=== PATIENT | female | born 1970 | race Caucasian/White ===

== ENCOUNTER 2023-03-31 11:41 | Outpatient (REF) | payer OTHER, SELFPAY ==
[2023-03-31 13:49] LABS: Free T4 (Free Thyroxine) 1.15 ng/dL (0.71-1.85); Thyroid Stimulating Hormone 0.51 uIU/mL (0.32-4.0)
[2023-04-03 19:18] LABS: Thyroglobulin Antibodies <1 IU/mL (< or = 1); Thyroid Peroxidase Antibodies 1 IU/mL (<9)
== END 2023-03-31 11:42 | disposition home or self-care (01) ==
LOC: HO.LAB 11:41
PROVIDERS: PCP Internal Medicine; Visit Provider Internal Medicine
DX: E04.2 Nontoxic multinodular goiter (principal)
CPT/HCPCS: 36415; 84439; 84443; 86376; 86800

== ENCOUNTER 2023-07-12 10:55 | Outpatient (REF) | payer OTHER, SELFPAY ==
--- NOTE | ~2023-07-12 | US_ITS ---
EXAMINATION: US BIOPSY THYROID NODULE CLINICAL INFORMATION: Left thyroid nodule. COMPARISON: None available. TECHNIQUE: Following explaining left thyroid nodule ultrasound-guided biopsy procedure, benefits and risks, a written consent was obtained. Patient was placed supine with head extended on the ultrasound stretcher and preliminary ultrasound imaging was obtained through the left neck. An optimal site was selected for the skin puncture and marked on the skin. The marked site was cleaned and draped in the usual sterile manner. 1% lidocaine was injected at puncture site. Under sterile ultrasound guidance, the midpole thyroid nodule biopsy was performed with 25-gauge biopsy needle attached to syringe. The sample was handed to lab for further evaluation. Postprocedure, needle was removed and complete hemostasis achieved at puncture site. Sterile Band-Aid applied postprocedure. US/US biopsy thyroid FINDINGS/IMPRESSION: On preliminary ultrasound imaging, there is a moderate echogenic nodule left midpole with eccentric hypoechoic to anechoic area, likely cyst. The nodule measures 2.7 x 1.6 x 1.6 cm. A 3-pass fine-needle biopsy aspiration was performed under ultrasound guidance. IMPRESSION: Successful ultrasound-guided left thyroid midpole nodule biopsy performed.
[2023-07-12] MEDS: Lidocaine HCl 1 % MPF 5 ML VIAL SUBCUT (11:56)
== END 2023-07-12 10:56 | disposition home or self-care (01) ==
LOC: HO.US 10:55
PROVIDERS: PCP Internal Medicine; Visit Provider Internal Medicine
DX: E04.2 Nontoxic multinodular goiter (principal)
CPT/HCPCS: 10005; 88173; 88305

== ENCOUNTER → 2023-07-12 10:57 | Outpatient (BNV) | payer OTHER, SELFPAY | PROVIDERS: PCP Internal Medicine; Visit Provider Radiology Diagnostic Radiology | DX: E04.2 Nontoxic multinodular goiter (principal) | CPT/HCPCS: 10005 ==

== ENCOUNTER 2023-08-30 15:44 | Outpatient (AMB) | payer OTHER, SELFPAY ==
[2023-08-30 15:51] VITALS: BP 150/80; PULSE 79; BMI 30.6
--- NOTE | 2023-08-30 15:51 | A.OFFVIS_ITS ---
Intake Vital Signs 08/30/23 15:51 Height 5 ft 3.5 in Weight 175 lb 4.28 oz BMI 30.6 BP 150/80 H Blood Pressure Location Lt brachial Position Sitting Pulse 79 Pulse Source Pulse Oximeter Intake Visit Reasons: FNA Results/LVM Intake Note: Patient present today for FNA results. Previous patient of Dr. Mera. 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 Patient last saw Dr. Mera on 03/31/2023. She is status post FNA left thyroid not with benign cytology She was found to have hypothyroidism approximately 1.5 months ago and was started on levothyroxine 150 mcg PO daily. She is currently on 137 mcg levothyroxine She reports feeling anxious, fatigued and emotionally labile. She also reports a weight gain of 35 lbs. She underwent an US of the neck and was noted to have a 3.1 cm left lobe thyroid nodule. She denies any personal history of radiation therapy to the head or the neck. She denies any family history of thyroid cancer. No pertinent labs to review. [facility] Medical History Multinodular thyroid Surgical History History of surgery Hx of tonsillectomy Family History Mother Colon cancer Father Family history of prostate problems Sister Colon cancer Metastasis to lung Liver cancer Social History Alcohol intake: current Alcohol intake frequency: holidays/special occasions only Patient Tobacco Use Status: Never used Tobacco Physical Exam Const Other: Thyroid gland is normal size weighs about 15 g. There are no thyroid nodules palpated Assessment & Plan Assessment & Plan (1) Multinodular thyroid: Code(s): E04.2 - Nontoxic multinodular goiter Plan: This is a 52-year-old white female with a history of left thyroid nodule and hypothyroidism status post FNA of left nodule with benign cytology. She appears to be clinically biochemically euthyroid on 137 mcg levothyroxine. Plan is to check TSH and free T4. Nodule would be reserved with observation and serial ultrasounds. Will consider switching from generic levothyroxine to branded Tirosint with dose depending on lab work Orders: Orders Thyroid Stimulating Hormone Today E04.2 - Nontoxic multinodular goiter Free T4 (Free Thyroxine) Today E04.2 - Nontoxic multinodular goiter Coding Level of Care Code Est Pt Level 3 (34473) Diagnoses Multinodular thyroid E04.2
== END 2023-08-30 16:28 | disposition home or self-care (01) ==
PROVIDERS: PCP Internal Medicine; Visit Provider Internal Medicine Endocrinology, Diabetes & Metabolism
DX: E04.2 Nontoxic multinodular goiter (principal)
CPT/HCPCS: 99213

== ENCOUNTER 2023-08-30 15:44 | Outpatient (REF) | payer OTHER, SELFPAY ==
[2023-08-30 18:32] LABS: Free T4 (Free Thyroxine) 1.34 ng/dL (0.71-1.85); Thyroid Stimulating Hormone 3.73 uIU/mL (0.32-4.0)
== END 2023-08-30 15:45 | disposition home or self-care (01) ==
LOC: HO.LAB 15:44
PROVIDERS: Absent Provider Internal Medicine; PCP Internal Medicine; Visit Provider Internal Medicine Endocrinology, Diabetes & Metabolism
DX: E04.2 Nontoxic multinodular goiter (principal); E03.8 Other specified hypothyroidism; Z98.890 Other specified postprocedural states
CPT/HCPCS: 36415; 84439; 84443

== ENCOUNTER 2024-11-18 13:50 | Outpatient (AMB) | payer OTHER, SELFPAY ==
--- NOTE | 2024-11-14 11:41 | A.OFFPC_ITS ---
Vital Signs 11/18/24 13:52 Height 5 ft 5 in Weight 175 lb BMI 29.1 BP 122/78 Blood Pressure Location Rt brachial Position Sitting Pulse 81 Temp 97.2 F Pulse Oximetry (%) 96 Intake Visit Reasons: FMLA Allergies codeine Allergy (Unknown, Verified 11/18/24 14:54) rash when she was younger gabapentin Allergy (Unknown, Verified 11/18/24 14:54) Rash Penicillins Allergy (Unknown, Verified 11/18/24 14:54) Rash Sulfa (Sulfonamide Antibiotics) Adverse Reaction (Unknown, Verified 11/18/24 14:54) yeast infection Medication List - Last Reconciled 11/18/24 by Guillermo Manning MD albuterol sulfate 90 mcg/actuation 2 puffs inhalation Q6H PRN cholecalciferol (vitamin D3) 25 mcg PO DAILY ferrous sulfate 325 mg PO .TWICE EACH WEEK fluticasone propion-salmeterol 100-50 mcg/dose (Advair Diskus) 1 inh inhalation Q12H levalbuterol tartrate 45 mcg/actuation 1 puff inhalation Q6H levothyroxine (Synthroid) 150 mcg orally ONCE DAILY WITH FOOD; SYNTHROID - NO SUBSTITUTIONS DAW1 morphine ER 60 mg PO Q12H oxycodone 5 mg PO Q8H PRN piroxicam 50 mg PO DAILY piroxicam 20 mg orally Once daily with food; sertraline 100 mg PO DAILY tramadol 50 mg PO TID PRN Ventolin HFA 90 mcg/actuation (albuterol sulfate) 1 puff inhalation QID PRN NS HPI FMLA HPI Details 53-year-old female presents to the offic e to discuss her chronic medical conditions. I am assuming her care. 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 She has this condition for many years and is on opiates for the past 8 years. Patient takes morphine extra release 60 mg twice a day, oxycodone 5 mg twice a day and tramadol 50 mg twice a day. She has been on this regimen for many months. Prior to her previous providers fpc, he had reduce the dosage to the above regimen. 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 She is able to go up and down the stairs and do the heavy work which is part of her job description. Patient is also requesting that her FMLA forms be renewed. Patient also has a thyroid disorder for which she takes levothyroxine. She t akes 150 mcg of levothyroxine every day. Patient reports severe gastric discomfort with levothyroxine. Unfortunately her insurance will not cover the brand prescription. [facility] Medical History DJD (degenerative joint disease), ankle and foot Chronic pain syndrome Multinodular thyroid Surgical History Hx of tonsillectomy History of surgery Family History Mother Colon cancer Father Family history of prostate problems Sister Colon cancer Metastasis to lung Liver cancer Social History Alcohol intake: current Alcohol intake frequency: holidays/special occasions only Patient Tobacco Use Status: Never used Tobacco Physical exam (Primary Care) Vital Signs: Last Vital Signs Temp 97.2 F 11/18/24 13:52 Pulse 81 11/18/24 13:52 BP 122/78 11/18/24 13:52 Pulse Ox 96 11/18/24 13:52 BMI result Body Mass Index 29.1 Tobacco/Smoking Status: Tobacco use Status Patient Tobacco Use Status Never used Tobacco 11/14/24 11:41 Const Other: Patient walking with a limp. General: cooperative and healthy appearing Nutritional Appearance: well nourished Orientation/consciousness: patient oriented x3 Limitations: no limitations HENMT Head: Yes normal to inspection Eyes General: appearance normal, both eyes and all related structures Neck Neck: Yes normal visual inspection Chest Chest palpation & inspection: normal palpation of entire chest wall Resp Effort & Inspection: normal respiratory effort Neuro General: patient oriented x3 Coding Level of Care Code New Pt Level 4 (68878) Complex EM visit Add On G2211 Diagnoses DJD (degenerative joint disease), ankle and foot M19.079 Chronic pain syndrome G89.4 Assessment & Plan Assessment & Plan (1) DJD (degenerative joint disease), ankle and foot: Code(s): M19.079 - Primary osteoarthritis, unspecified ankle and foot Category: Medical Plan: X-ray of the ankle ordered. X-ray of the hip ordered. This has to evaluate the progression on the DJD. (2) Chronic pain syndrome: Code(s): G89.4 - Chronic pain syndrome Category: Medical Plan: Patient is able to function and do all activities of daily living under current opiate regimen. I have suggested that she sees the pain management once to determine if the regimen is appropriate. I will be continuing the prescriptions for her after she has seen pain management. FMLA forms will be filled. Orders: Orders XR hip RT w PEL1V 11/18/24 M25.551 - Pain in right hip Complete Blood Count no Diff 11/18/24 G89.4 - Chronic pain syndrome, M19.079 - Primary osteoarthritis, unspecified ankle and foot Lipid Panel 11/18/24 G89.4 - Chronic pain syndrome, M19.079 - Primary osteoarthritis, unspecified ankle and foot Liver Panel 11/18/24 G89.4 - Chronic pain syndrome, M19.079 - Primary os teoarthritis, unspecified ankle and foot XR ankle LT min 3V 11/18/24 M19.079 - Primary osteoarthritis, unspecified ankle and foot Thyroid Stimulating Hormone 11/18/24 G89.4 - Chronic pain syndrome, M19.079 - Primary osteoarthritis, unspecified ankle and foot Basic Metabolic Panel 11/18/24 G89.4 - Chronic pain syndrome, M19.079 - Primary osteoarthritis, unspecified ankle and foot UA and rflx microscopic 11/18/24 G89.4 - Chronic pain syndrome, M19.079 - Primary osteoarthritis, unspecified ankle and foot Referrals Pain Management Referral G89.4 - Chronic pain syndrome Medications: New fluticasone propion-salmeterol 100-50 mcg/dose (Advair Diskus) 1 inh inhalation Q12H 60 ea 0RF levalbuterol tartrate 45 mcg/actuation 1 puff inhalation Q6H 15 grams 0RF cholecalciferol (vitamin D3) 25 mcg PO DAILY 90 caps 0RF Ventolin HFA 90 mcg/actuation (albuterol sulfate) BRAND NAME ONLY - DAW1 1 puff inhalation QID PRN 18 grams 0RF shortness of breath or wheezing NS Refilled oxycodone 5 mg PO Q8H PRN 90 tabs 0RF pain tramadol 50 mg PO TID PRN 90 tabs 0RF pain morphine ER 60 mg PO Q12H 60 tabs 0RF
[2024-11-18 13:52] VITALS: BP 122/78; PULSE 81; TEMP 36.2; O2SAT 96; BMI 29.1
== END 2024-11-18 14:32 | disposition home or self-care (01) ==
LOC: HO.HMCSH 13:50
PROVIDERS: PCP Internal Medicine; Visit Provider Internal Medicine
DX: M19.079 Primary osteoarthritis, unspecified ankle and foot (principal); G89.4 Chronic pain syndrome

== ENCOUNTER 2025-06-09 08:33 | Outpatient (AMB) | payer OTHER, SELFPAY ==
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
[2025-06-09 08:43] VITALS: BP 150/82; PULSE 72; RESP 16; TEMP 36.2; O2SAT 99; BMI 28.5
--- OUTSIDE RECORDS SUMMARY | 2025-06-09 08:57 | XMS_ITS | Encounter Summary ---
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 Name Role Phone Shawn Stanton DO Primary Care Provider [phone] Encounter Details Date Type Department Care Team (Latest Contact Info) Description 04/24/2018 Transcribe Orders [facility] [address] [place] [address] [place] [address] Shawn Stanton DO [address] [place] [address] Iron deficiency anemia due to chronic blood loss (Primary Dx) Social History Tobacco Use Types Packs/Day Years Used Date Smoking Tobacco: Never Assessed Comments Unknown Sex and Gender Information Value Date Recorded Sex Assigned at Not on file Legal Sex Female 9:34 PM EDT Gender Identity Not on file Sexual Orientation Not on file documented as of this encounter Plan of Treatment Not on file documented as of this encounter Results * (ABNORMAL) Comprehensive metabolic panel (04/24/2018 1:14 PM EDT) SODIUM 136 133 - 146 mmol/L [facility] POTASSIUM 3.9 3.3 - 5.1 mmol/L [facility] CHLORIDE 97 96 - 108 mmol/L [facility] CO2 27 21 - 35 mmol/L [facility] BUN 12 6 - 19 mg/dL [facility] CREATININE 0.50 0.5 - 1.5 mg/dL [facility] GLUCOSE 109(H) 70 - 99 mg/dL [facility] ALBUMIN 4.2 3.9 - 4.8 g/dL [facility] TOTAL PROTEIN 7.3 6.5 - 8.0 g/dL [facility] CALCIUM 9.5 8.4 - 10.3 mg/dL [facility] ALKALINE PHOSPHATASE 118(H) 39 - 117 U/L [facility] TOTAL BILIRUBIN 0.3 0.0 - 1.2 mg/dL [facility] AST 27 0 - 37 U/L [facility] ALT 27 0 - 40 U/L [facility] GLOBULIN 3.1 1 - 4.8 g/dL [facility] EGFR 115 >59 mL/min/1.7 3m2 [facility] Comment:If patient is black, multiply result by 1.159. Estimated glomerular filtration rate calculated using the CKD-EPI equation. ANION GAP 16 10 - 20 mmol/L [facility] Blood 04/24/2018 1:14 PM EDT 04/24/2018 1:18 PM EDT us Shawn Stanton DO LAB BLOOD ORDERABLES Final R esult Performing Organization Address City/[facility]/ZIP Co de Phone Number [address] [address] * Iron and iron binding capacity (04/24/2018 1:14 PM EDT) IRON 120 30 - 160 ug/dL [facility] IRON BINDING CAPACITY 339 228 - 428 ug/dL [facility] TRANSFERRIN SATURAT. 35 15 - 50 % [facility] Blood 04/24/2018 1:14 PM EDT 04/24/2018 1:18 PM EDT us Shawn Stanton DO LAB BLOOD ORDERABLES Final R esult [address] [address] * Ferritin (04/24/2018 1:14 PM EDT) FERRITIN 25 13 - 150 ug/L [facility] Blood 04/24/2018 1:14 PM EDT 04/24/2018 1:18 PM EDT us Shawn Stanton DO LAB BLOOD ORDERABLES Final R esult [address] [place] [address] * (ABNORMAL) CBC and differential (04/24/2018 1:14 PM EDT) WBC 5.11 3.40 - 11.20 K/uL [facility] RBC 3.91 3.80 - 4.80 M/uL [facility] HGB 11.7(L) 12.0 - 15.0 g/dL [facility] HCT 35.0(L) 36.0 - 46.0 % [facility] PLT 199 130 - 400 K/uL [facility] MCV 89.5 79.0 - 98.0 fL [facility] MCH 29.9 27.0 - 34.8 pg [facility] MCHC 33.4 31.5 - 36.0 g/dL [facility] RDW 13.7 10.8 - 14.6 % [facility] MPV 10.7 9.4 - 12.4 fl [facility] NRBC 0.00 /100 WBCs [facility] ABSOLUTE NRBC 0.00 K/uL [facility] DIFF METHOD Auto [facility] NEUTS 68.0 45.30 - 77.70 % [facility] LYMPHS 23.5 12.30 - 39.70 % [facility] MONOS 6.5 4.10 - 12.80 % [facility] EOS 1.2 0 - 7.2 % [facility] BASOS 0.6 0 - 2.80 % [facility] Granulocytes, immature (%) 0.2 0.0 - 0.9 % [facility] ABSOLUTE NEUTS 3.48 1.40 - 7.70 K/uL [facility] ABSOLUTE LYMPHS 1.20 0.60 - 3.20 K/uL [facility] ABSOLUTE MONOS 0.33 0.11 - 0.59 K/uL [facility] ABSOLUTE EOS 0.06 0.01 - 0.50 K/uL [facility] ABSOLUTE BASOS 0.03 0.00 - 0.08 K/uL [facility] Granulocytes, immature 0.01 0.00 - 0.05 K/uL [facility] Blood 04/24/2018 1:14 PM EDT 04/24/2018 1:18 PM EDT us Shawn Stanton DO LAB BLOOD ORDERABLES Final R esult [facility] [address] [place] [address] documented in this encounter Visit Diagnoses Diagnosis Iron deficiency anemia due to chronic blood loss- Primary Iron deficiency anemia secondary to blood loss (chronic) documented in this encounter Care Teams Automobile Upholsterer Relationship Specialty Start Date End Date Shawn Stanton, [address] [place] [phone] PCP - General 10/19/17 documented as of this encounter Additional Source Comments The information contained in this document represents components of the legal health record. It is not the complete legal health record.[facility]
== END 2025-06-09 09:59 | disposition home or self-care (01) ==
LOC: HO.HMCSH 08:33
PROVIDERS: PCP Internal Medicine; Visit Provider Internal Medicine
DX: G89.4 Chronic pain syndrome (principal)

== ENCOUNTER 2025-08-28 15:00 | Outpatient (REF) | payer OTHER, SELFPAY ==
--- OUTSIDE RECORDS SUMMARY | 2025-08-28 18:15 | XMS_ITS | Encounter Summary ---
Author Organization [facility] Address [address] [place] [address] Phone Care Team Providers Care Automatic Log Cut Off Sawyer Name Role Phone Shawn Stanton Primary Care Provider Encounter Details Date Type Department Care Team (Late st Contact Info) Description 08/22/2025 Orders Only [address] [place] [address] Guillermo Manning MD [address] [place] [address] [address] [place], [place] [id number] Localized, primary osteoarthritis of ankle or foot, unspecified laterality (Primary Dx); Chronic pain syndrome Social History Tobacco Use Types Packs/Day Years Used Date Smoking Tobacco: Never Alcohol Use Standard Drinks/Week Comments Yes 0 (1 standard drink = 0.6 oz pur e alcohol) Education Answer Date Recorded Are you interested in more education? Not on shantelle e 02/10/2023 Are you concerned about learning? Not on file 02/10/2023 No 02/10/2023 No 02/10/2023 Digital Access Answer Date Recorded No 03/11/2023 No 03/11/2023 Reliable internet access at home? Not on file 03/11/2023 Device with a working camera? Not on file Comments Unknown Sex and Gender Information Value Date Recorded Sex Assigned at Not on file Legal Sex Female 9:34 PM EDT Gender Identity Not on file Sexual Orientation Not on file documented as of this encounter Plan of Treatment Scheduled Orders Name Type Priority Associated Diagnoses Orde r Schedule Basic Metabolic Panel (BMP) Lab Routine Localized, primary osteoarthritis of ankle or foot, unspecified laterality Chronic pain syndrome Expected: 08/22/2025, Expires: 08/22/2026 Urinalysis with Reflex to Urine Culture Lab Routine Localized, primary osteoarthritis of ankle or foot, unspecified laterality Chronic pain syndrome Expected: 08/22/2025, Expires: 08/22/2026 CBC Lab Routine Localized, primary osteoarthritis of ankle or foot, unspecified laterality Chronic pain syndrome Expected: 08/22/2025, Expires: 08/22/2026 Lipid Panel Lab Routine Localized, primary osteoarthritis of ankle or foot, unspecified laterality Chronic pain syndrome Expected: 08/22/2025, Expires: 08/22/2026 Hepatic Panel (LFTs) Lab Routine Localized, primary osteoarthritis of ankle or foot, unspecified laterality Chronic pain syndrome Expected: 08/22/2025, Expires: 08/22/2026 Thyroid Stimulating Hormone (TSH) Lab Routine Localized, primary osteoarthritis of ankle or foot, unspecified laterality Chronic pain syndrome Expected: 08/22/2025, Expires: 08/22/2026 documented as of this encounter Visit Diagnoses Diagnosis Localized, primary osteoarthritis of ankle or foot, unspecified laterality- Primary Chronic pain syndrome documented in this encounter Care Teams Automatic Log Cut Off Sawyer Relationship Specialty Start Date End Date Shawn Stanton DO [address] [place] [id number] PCP - General 10/19/17 documented as of this encounter Additional Source Comments The information contained in this document represents components of the legal health record. It is not the complete legal health record.[facility]
--- OUTSIDE RECORDS SUMMARY | 2025-08-28 18:15 | XMS_ITS | Encounter Summary ---
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); Mild persistent asthma without complication; Iron deficiency anemia secondary to blood loss (chronic) Social History Tobacco Use Types Packs/Day Years [...] encounter Results * (ABNORMAL) Comprehensive metabolic panel (09/30/2019 8:17 AM EST) SODIUM 135 133 - 146 mmol/L [facility] POTASSIUM 4.2 3.3 - 5.1 mmol/L [facility] CHLORIDE 98 96 - 108 mmol/L [facility] CO2 26 21 - 35 mmol/L [facility] BUN 13 6 - 19 mg/dL [facility] CREATININE <0.50(L) 0.5 - 1.5 mg/dL [facility] GLUCOSE 97 70 - 99 mg/dL [facility] ALBUMIN 4.1 3.9 - 4.8 g/dL [facility] TOTAL PROTEIN 7.2 6.5 - 8.0 g/dL [facility] CALCIUM 8.8 8.4 - 10.3 mg/dL [facility] ALKALINE PHOSPHATASE 107 39 - 117 U/L [facility] TOTAL BILIRUBIN 0.2 0.0 - 1.2 mg/dL [facility] AST 29 0 - 37 U/L [facility] ALT 25 0 - 40 U/L [facility] GLOBULIN 3.1 1 - 4.8 g/dL [facility] EGFR Not Done >59 mL/min/1.7 3m2 [facility] ANION GAP 15 10 - 20 mmol/L [facility] Blood 09/30/2019 8:17 AM EST 09/30/2019 8:21 AM EST us Shawn Stanton DO LAB BLOOD BKR ORDERABLES Fin al Result Performing Organization Address City/State/[facility] Co de Phone Number [address] [address] * (ABNORMAL) CBC and differential (09/30/2019 8:17 AM EST) WBC 4.09 3.40 - 11.20 K/uL [facility] RBC 3.74(L) 3.80 - 4.80 M/uL [facility] HGB 9.4(L) 12.0 - 15.0 g/dL [facility] HCT 31.3(L) 36.0 - 46.0 % [facility] PLT 260 130 - 400 K/uL [facility] MCV 83.7 79.0 - 98.0 fL [facility] MCH 25.1(L) 27.0 - 34.8 pg [facility] MCHC 30.0(L) 31.5 - 36.0 g/dL [facility] RDW 15.2(H) 10.8 - 14.6 % [facility] MPV 10.0 9.4 - 12.4 fl [facility] NRBC 0.00 0.00 /100 WBCs [facility] ABSOLUTE NRBC 0.00 0.00 K/uL [facility] DIFF METHOD Auto [facility] NEUTS 52.0 45.30 - 77.70 % [facility] LYMPHS 32.8 12.30 - 39.70 % [facility] MONOS 12.0 4.10 - 12.80 % [facility] EOS 2.0 0 - 7.2 % [facility] BASOS 1.0 0 - 2.80 % [facility] Granulocytes, immature (%) 0.2 0.0 - 0.9 % [facility] ABSOLUTE NEUTS 2.13 1.40 - 7.70 K/uL [facility] ABSOLUTE LYMPHS 1.34 0.60 - 3.20 K/uL [facility] ABSOLUTE MONOS 0.49 0.11 - 0.59 K/uL [facility] ABSOLUTE EOS 0.08 0.01 - 0.50 K/uL [facility] ABSOLUTE BASOS 0.04 0.00 - 0.08 K/uL [facility] Granulocytes, immature 0.01 0.00 - 0.05 K/uL [facility] Blood 09/30/2019 8:17 AM EST 09/30/2019 8:21 AM EST [facility] ORDERABLES Fin al Result Performing Organization Address [facility] Co de Phone Number [address] [address] * (ABNORMAL) Ferritin (09/30/2019 8:17 AM EST) FERRITIN 9(L) 13 - 150 ug/L [facility] Blood 09/30/2019 8:17 AM EST 09/30/2019 8:21 AM EST Shawn Romy DO LAB BLOOD BKR ORDERABLES Fin al Result Performing Organization Address [facility] Co de Phone Number [address] [address] * (ABNORMAL) Lipid panel (09/30/2019 8:17 AM EST) HDL 94 mg/dL [facility] Comment: Interpretation <40 mg/dL: Low HDL cholesterol (major risk factor for CHD) Greater than or equal to 60 mg/dL: High HDL cholesterol ( negative risk factor for CHD) HDL - cholesterol is affected by a number of factors, e.g. smoking, excerise, hormones, sex and age. CHOLESTEROL 209 0 - 240 mg/dL [facility] TRIGLYCERIDES 71 30 - 160 mg/dL [facility] LDL 101 50 - 129 mg/dL [facility] Comment: LDL levels in terms of risk for coronary heart disease: <100 mg/dL: Optimal 100-129 mg/dL: Near or above optimal 130-159 mg/dL: Borderline high 160-189 mg/dL: High >190 mg/dL: Very High CARDIAC RISK RATIO 2.2(L) 3.3 - 4.4 C [facility] Blood 09/30/2019 8:17 AM EST 09/30/2019 8:21 AM EST Shawn Stanton DO LAB BLOOD BKR ORDERABLES Fin al Result Performing Organization Address [facility] Co de Phone Number [address] [address] * (ABNORMAL) Iron and iron binding capacity (09/30/2019 8:17 AM EST) IRON 20(L) 30 - 160 ug/dL [facility] IRON BINDING CAPACITY 417 228 - 428 ug/dL [facility] TRANSFERRIN SATURAT. 5(L) 15 - 50 % [facility] Blood 09/30/2019 8:17 AM EST 09/30/2019 8:21 AM EST Shawn Stanton DO LAB BLOOD BKR ORDERABLES Fin al Result Performing Organization Address City/[facility]/ZIP Co de Phone Number [address] [address] * (ABNORMAL) 25-OH vitamin D (09/30/2019 8:17 AM EST) 25 OH VIT D (TOTAL) 24(L) 30 - 60 ng/mL [facility] Blood 09/30/2019 8:17 AM EST 09/30/2019 8:21 AM EST Shawn Stanton LAB BLOOD BKR ORDERABLES Fin al Result Performing Organization Address City/[facility]/ZIP Co de Phone Number [address] [address] * TSH (09/30/2019 8:17 AM EST) TSH 3.26 0.27 - 4.20 uIU/mL [facility] Blood 09/30/2019 8:17 AM EST 09/30/2019 8:21 AM EST Shawn Stanton LAB BLOOD BKR ORDERABLES Fin al Result Performing Organization Address [facility] de Phone Number [address] [address] * LH (09/30/2019 8:17 AM EST) LH 1.6 IU/L [facility] Comment: Interpretation: FEMALE: Follicular: 2.4 - 12.6 mIU/ml Ovulate: 4.0 - 99.6 mIU/ml Luteal: 1.0 - 11.4 mIU/ml Postmenopausal: 7.7 - 58.5 mIU/ml Blood 09/30/2019 8:17 AM EST 09/30/2019 8:21 AM EST Shawn Stanton LAB BLOOD BKR ORDERABLES Fin al Result Performing Organization Address [facility] Co de Phone Number [address] [address] * FSH (09/30/2019 8:17 AM EST) FSH 3.9 IU/L [facility] Comment: FEMALE: Follicular: 3.5 - 12.5 mIU/ml. Ovulate: 4.7 - 21.5 mIU/ml. Luteal: 1.7 - 7.7 mIU/ml. Postmenopausal: 25.8 - 134.8 mIU/ml. Blood 09/30/2019 8:17 AM EST 09/30/2019 8:21 AM EST Shawn Stanton DO LAB BLOOD BKR ORDERABLES Fin al Result Performing Organization Address City/[facility]/ZIP Co de Phone Number [address] [address] * ESTROGENS, E1+E2, FRACTIONATED (09/30/2019 8:17 AM EST) ESTRONE 49 pg/mL [facility] Comment: (NOTE) REFERENCE VALUE Premenopausal :17-200 Postmenopausal : 7-40 ADDITIONAL INFORMATION This test was developed and its performance characteristics determined by [facility] in a manner consistent with CLIA requirements. This test has not been cleared or approved by the U.S. Food and Drug Administration. ESTRADIOL, S 40 pg/mL [facility] Comment: (NOTE) REFERENCE VALUE Premenopausal: 15-350 (E2 levels vary widely through the menstrual cycle.) Postmenopausal: <10 ADDITIONAL INFORMATION This test was developed and its performance characteristics determined by [facility] in a manner consistent with CLIA requirements. This test has not been cleared or approved by the U.S. Food and Drug Administration. Blood 09/30/2019 8:17 AM EST 09/30/2019 8:21 AM EST Shawn Stanton DO LAB BLOOD ORDERABLES Final R esult Performing Organization Address [facility]/ZIP Co de Phone Number [facility] [address] [place] [address] documented in this encounter Visit Diagnoses Diagnosis Chronic pain due to trauma- Primary Mild persistent asthma without complication Iron deficiency anemia secondary to blood loss (chronic) documented in this encounter Care Teams Drapery Installer Relationship Specialty Start Date End Date Shawn Stanton DO [address] [place] [id number] PCP - General 10/19/17 documented as of this encounter Additional Source Comments The information contained in this document represents components of the legal health record. It is not the complete legal health record.[facility]
--- OUTSIDE RECORDS SUMMARY | 2025-08-28 18:15 | XMS_ITS | Encounter Summary ---
Author Organization [facility] Address [address] [facility] [address] [place] [address] Phone Care Team Providers Care Campus Rep Name Role Phone Shawn Stanton DO Primary Care Provider Encounter Details Date Type Department Care Team (Latest Contact Info) Description 04/24/2018 Transcribe Orders [facility] Phle[facility] [address] [place] [address] Shawn Stanton DO [address] [place] [address] Iron deficiency anemia due to chronic blood [...] EDT) SODIUM 136 133 - 146 mmol/L [facility] POTASSIUM 3.9 3.3 - 5.1 mmol/L [facility] CHLORIDE 97 96 - 108 mmol/L [facility] CO2 27 21 - 35 mmol/L [facility] BUN 12 6 - 19 mg/dL [facility] CREATININE 0.50 0.5 - 1.5 mg/dL [facility] GLUCOSE 109(H) 70 - 99 mg/dL [facility] ALBUMIN 4.2 3.9 - 4.8 g/dL [facility] TOTAL PROTEIN 7.3 6.5 - 8.0 g/dL [facility] CALCIUM 9.5 8.4 - 10.3 mg/dL [facility] ALKALINE PHOSPHATASE 118(H) 39 - 117 U/L [facility] TOTAL BILIRUBIN 0.3 0.0 - 1.2 mg/dL [facility] AST 27 0 - 37 U/L [facility] ALT 27 0 - 40 U/L [facility] GLOBULIN 3.1 1 - 4.8 g/dL [facility] EGFR 115 >59 mL/min/1.7 3m2 [facility] Comment:If patient is black, multiply result by 1.159. Estimated glomerular filtration rate calculated using the CKD-EPI equation. ANION GAP 16 10 - 20 mmol/L [facility] Blood 04/24/2018 1:14 PM EDT 04/24/2018 1:18 PM EDT us Shawn Stanton DO LAB BLOOD BKR ORDERABLES Fin al Result Performing Organization Address [facility] Co de Phone Number [address] [address] * Iron and iron binding capacity (04/24/2018 1:14 PM EDT) IRON 120 30 - 160 ug/dL [facility] IRON BINDING CAPACITY 339 228 - 428 ug/dL [facility] TRANSFERRIN SATURAT. 35 15 - 50 % [facility] Blood 04/24/2018 1:14 PM EDT 04/24/2018 1:18 PM EDT Shawn Stanton DO LAB BLOOD BKR ORDERABLES Fin al Result [address] [address] * Ferritin (04/24/2018 1:14 PM EDT) FERRITIN 25 13 - 150 ug/L [facility] Blood 04/24/2018 1:14 PM EDT 04/24/2018 1:18 PM EDT us Shawn Stanton DO LAB BLOOD BKR ORDERABLES Fin al Result [facility] [address] [place] [address] * (ABNORMAL) CBC and differential (04/24/2018 1:14 PM EDT) WBC 5.11 3.40 - 11.20 K/uL [facility] RBC 3.91 3.80 - 4.80 M/uL [facility] HGB 11.7(L) 12.0 - 15.0 g/dL [facility] HCT 35.0(L) 36.0 - 46.0 % [facility] PLT 199 130 - 400 K/uL [facility] MCV 89.5 79.0 - 98.0 fL [facility] MCH 29.9 27.0 - 34.8 pg [facility] MCHC 33.4 31.5 - 36.0 g/dL [facility] RDW 13.7 10.8 - 14.6 % [facility] MPV 10.7 9.4 - 12.4 fl [facility] NRBC 0.00 /100 WBCs [facility] ABSOLUTE NRBC 0.00 K/uL [facility] DIFF METHOD Auto [facility] NEUTS 68.0 45.30 - 77.70 % [facility] LYMPHS 23.5 12.30 - 39.70 % [facility] MONOS 6.5 4.10 - 12.80 % [facility] EOS 1.2 0 - 7.2 % [facility] BASOS 0.6 0 - 2.80 % [facility] Granulocytes, immature (%) 0.2 0.0 - 0.9 % [facility] ABSOLUTE NEUTS 3.48 1.40 - 7.70 K/uL [facility] ABSOLUTE LYMPHS 1.20 0.60 - 3.20 K/uL [facility] ABSOLUTE MONOS 0.33 0.11 - 0.59 K/uL [facility] ABSOLUTE EOS 0.06 0.01 - 0.50 K/uL [facility] ABSOLUTE BASOS 0.03 0.00 - 0.08 K/uL [facility] Granulocytes, immature 0.01 0.00 - 0.05 K/uL [facility] Blood 04/24/2018 1:14 PM EDT 04/24/2018 1:18 PM EDT us Shawn Stanton DO LAB BLOOD BKR ORDERABLES Fin al Result [facility] [address] [place] [address] documented in this encounter Visit Diagnoses Diagnosis Iron deficiency anemia due to chronic blood loss- Primary Iron deficiency anemia secondary to blood loss (chronic) documented in this encounter Care Teams Campus Rep Relationship Specialty Start Date End Date Shawn Stanton, [address] [place] [address] PCP - General 10/19/17 documented as of this encounter Additional Source Comments The information contained in this document represents components of the legal health record. It is not the complete legal health record.[facility]
--- OUTSIDE RECORDS SUMMARY | 2025-08-28 18:15 | XMS_ITS | Encounter Summary ---
Author Organization [facility] Address [address] [address] Phone Care Team Providers Care Prosthodontist/Educator Name Role Phone Shawn Stanton DO Primary Care Provider Encounter Details Date Type Department Care Team (Latest Contact Info) Description 12/20/2021 Transcribe Orders Virtual Department [address] [place] [address] Shawn Stanton DO [address] [place] [address] COVID (Primary Dx); Mild persistent asthma without complication Social History Tobacco Use Types Packs/Day Years Used Date Smoking Tobacco: Never Alcohol Use Standard Drinks/Week Comments Yes 0 (1 standard drink = 0.6 oz pur e alcohol) Comments Unknown Sex and Gender Information Value Date Recorded Sex Assigned at Not on file Legal Sex Female 9:34 PM EDT Gender Identity Not on file Sexual Orientation Not on file documented as of this encounter Plan of Treatment Not on file documented as of this encounter Visit Diagnoses Diagnosis COVID- Primary Mild persistent asthma without complication documented in this encounter Care Teams Prosthodontist/Educator Relationship Specialty Start Date End Date Shawn Stanton DO [address] [place] [address] PCP - General 10/19/17 documented as of this encounter Additional Source Comments The information contained in this document represents components of the legal health record. It is not the complete legal health record.[facility]
--- OUTSIDE RECORDS SUMMARY | 2025-08-28 18:15 | XMS_ITS | Encounter Summary ---
Author Organization [facility] Address [address] [place] [address] Phone Care Team Providers Care Photographer Motion Picture Name Role Phone Shawn Stanton DO Primary Care Provider Encounter Details Date Type Department Care Team (Late st Contact Info) Description 08/22/2025 Orders Only [facility] [address] [place] [address] Guillermo Manning MD [address] [place] [address] [address] [place], [place] [phone] Chronic pain syndrome (Primary Dx); Localized, primary osteoarthritis of ankle or foot, unspecified laterality Social History Tobacco Use Types Packs/Day Years [...] documented as of this encounter Results * Urinalysis with Reflex to Urine Culture (08/22/2025 8:26 AM EST) Color Yellow Yellow 08/22/2025 3:37 PM EST [facility] Clarity Clear Clear 08/22/2025 3:37 PM [facility] Glucose Negative Negative 08/22/2025 3:37 PM [facility] Bilirubin Urine Negative Negative 3:37 PM [facility] Ketone Urine Negative Negative 08/22/2025 3:37 PM [facility] Specific [place] 1.020 1.001 - 1.035 08/22/2025 3:37 PM [facility] Blood Negative Negative 08/22/2025 3:37 PM [facility] pH 6.5 5.0 - 8.0 08/22/2025 3:37 PM [facility] Protein Negative Negative 08/22/2025 3:37 PM [facility] Nitrites Negative Negative 08/22/2025 3:37 PM [facility] Leukocyte Esterase Negative Negative 08/22/2025 3:37 PM [facility] Urobilinogen Negative Negative 08/22/2025 3:37 PM [facility] Urine (Urine, Voided) Non-Blood Collection / Unknown 08/22/2025 8:26 AM EST 08/22/2025 8:26 AM EST us Guillermo Manning MD LAB URINE ORDERABLES Final Result Performing Organization Address City/[facility]/ZIP Co de Phone Number [address] [address] * Thyroid Stimulating Hormone (TSH) (08/22/2025 8:26 AM EST) TSH 1.02 0.40 - 5.00 uIU/mL 08/22/2025 2:51 PM [facility] Blood (Blood) Venipuncture / Unknown 08/22/2025 8:26 AM EST 08/22/2025 8:26 AM EST us Guillermo Manning MD LAB BLOOD BKR ORDERA BLES Final Result [address] [address] * (ABNORMAL) Hepatic Panel (LFTs) (08/22/2025 8:26 AM EST) AST 32 <33 U/L 08/22/2025 2:51 PM [facility] ALT 25 <34 U/L 08/22/2025 2:51 PM [facility] Alkaline Phosphatase 164(H) 40 - 130 U/L 08/22/2025 2:51 PM [facility] Bilirubin, Total 0.4 0.0 - 1.2 mg/dL 08/22/2025 2:51 PM [facility] Bilirubin, Direct 0.1 0.0 - 0.3 mg/dL 08/22/2025 2:51 PM [facility] Total Protein 8.2 6.4 - 8.3 g/dL 08/22/2025 2:51 PM [facility] Albumin 4.7 3.5 - 5.2 g/dL 08/22/2025 2:51 PM [facility] Globulin 3.5 1.9 - 4.1 g/dL 08/22/2025 2:51 PM [facility] Blood (Blood) Venipuncture / Unknown 08/22/2025 8:26 AM EST 08/22/2025 8:26 AM EST us Guillermo Manning MD LAB BLOOD BKR ORDERA BLES Final Result Performing Organization Address City/State/[facility] Co de Phone Number [address] [address] * (ABNORMAL) Lipid Panel (08/22/2025 8:26 AM EST) Cholesterol 235(H) <200 mg/dL 08/22/2025 2:51 PM [facility] HDL 110 >=40 mg/dL 08/22/2025 2:51 PM [facility] Calculated LDL 110 <130 mg/dL 08/22/2025 2:51 PM [facility] Comment:LDL is calculated us ing the Pradhan-NIH equation (TIFFANY Cardiol. 2019February 13;5(5):540-548). Non-HDL Cholesterol 125 mg/dL 08/22/2025 2:51 PM [facility] Comment:Guidelines suggest a non-HDL cholesterol goal 30 mg/dL higher than the patient-specific LDL cholesterol goal. Cardiac Risk Ratio 2.1 0.0 - 5.0 2024 2:51 PM [facility] Triglycerides 89 <=150 mg/dL 08/22/2025 2:51 PM [facility] Blood (Blood) Venipuncture / Unknown 08/22/2025 8:26 AM EST 08/22/2025 8:26 AM EST us Guillermo Manning MD LAB BLOOD BKR ORDERA BLES Final Result Performing Organization Address City/State/[facility] Co de Phone Number [facility] [address] [place] [address] * (ABNORMAL) CBC (08/22/2025 8:26 AM EST) WBC 6.89 4.00 - 11.00 K/uL 08/22/2025 1:44 PM [facility] RBC 4.40 4.00 - 5.20 M/uL 08/22/2025 1:44 PM [facility] Hemoglobin 14.9 12.0 - 16.0 g/dL 08/22/2025 1:44 PM [facility] Hematocrit 43.9 36.0 - 46.0 % 08/22/2025 1:44 PM [facility] MCV 99.8 80.0 - 100.0 fL 08/22/2025 1:44 PM [facility] MCH 33.9(H) 27.0 - 31.0 pg 08/22/2025 1:44 PM [facility] MCHC 33.9 32.0 - 36.0 g/dL 08/22/2025 1:44 PM [facility] PLT 200 150 - 450 K/uL 08/22/2025 1:44 PM [facility] MPV 11.0 8.4 - 12.0 fL 08/22/2025 1:44 PM [facility] RDW-CV 11.7 11.5 - 14.5 % 08/22/2025 1:44 PM [facility] Absolute NRBC 0.00 <=0.00 K cells/uL 08/22/2025 1:44 PM [facility] NRBC 0.0 <=0.0 /100 WBCs 08/22/2025 1:44 PM [facility] Blood (Blood) Venipuncture / Unknown 08/22/2025 8:26 AM EST 08/22/2025 8:26 AM EST us Guillermo Manning MD LAB BLOOD BKR ORDERA BLES Final Result [address] [address] * (ABNORMAL) Basic Metabolic Panel (BMP) (08/22/2025 8:26 AM EST) Sodium 135(L) 136 - 145 mmol/L 08/22/2025 2:51 PM [facility] Potassium 4.3 3.4 - 5.1 mmol/L 08/22/2025 2:51 PM [facility] Comment:NOTE: Specimen hemol yzed. Results may be falsely increased. Chloride 97(L) 98 - 107 mmol/L 08/22/2025 2:51 PM [facility] CO2 26 20 - 31 mmol/L 08/22/2025 2:51 PM [facility] Anion Gap 12 3 - 17 mmol/L 08/22/2025 2:51 PM [facility] BUN 11 6 - 23 mg/dL 08/22/2025 2:51 PM [facility] Creatinine 0.40(L) 0.50 - 1.00 mg/dL 08/22/2025 2:51 PM [facility] eGFR 118 >59 mL/min/1.7 3m2 08/22/2025 2:51 PM [facility] Comment:Estimated glomerular filtration rate calculated using the CKD-EPI refit equation. Glucose 96 70 - 99 mg/dL 08/22/2025 2:51 PM [facility] Calcium 10.2 8.5 - 10.5 mg/dL 08/22/2025 2:51 PM EST [facility] Blood (Blood) Venipuncture / Unknown 08/22/2025 8:26 AM EST 08/22/2025 8:26 AM EST us Guillermo Manning MD LAB BLOOD BKR ORDERA BLES Final Result Performing Organization Address City/State/[facility] Co de Phone Number [facility] [address] [place] [address] documented in this encounter Visit Diagnoses Diagnosis Chronic pain syndrome- Primary Localized, primary osteoarthritis of ankle or foot, unspecified laterality documented in this encounter Care Teams Photographer Motion Picture Relationship Specialty Start Date End Date Shawn Stanton DO [address] [place] [id number] PCP - General 10/19/17 documented as of this encounter Additional Source Comments The information contained in this document represents components of the legal health record. It is not the complete legal health record.[facility]
--- OUTSIDE RECORDS SUMMARY | 2025-08-28 18:15 | XMS_ITS | Clinical Summary ---
Author Organization [facility] Address [address] [address] Phone Care Team Providers Care Deputy Sheriff/Investigator Name Role Phone Shawn Stanton DO Primary Care Provider [phone] Allergies Active Allergy Reactions Criticality Noted Date Comments Codeine 05/07/2021 Gabapentin 05/07/2021 Penicillins 05/07/2021 Sulfa (Sulfonamide Antibiotics) 04/16 Medications traMADol (ULTRAM) 50 mg tablet Take 1 tablet by mouth every 6 (six) hours as needed. Active albuterol (PROVENTIL HFA) 90 mcg/actuation inhaler Inhale 2 puffs into the lungs every 4 (four) hours as needed. Active morphine (MS CONTIN) 60 MG 12 hr tablet Orally Active Medication-Free Text Hydrocodone-Titus taminophen 10-325 MG/15ML tablet, Si tablet as needed Orally every 6 hrs Active fluticasone-asher meterol (ADVAIR DISKUS) 100-50 mcg/dose DISKUS Inhalation Act alberto ferrous sulfate 325 mg (65 mg iron) CpER Orally Active Encounters Date Type Department Care Team Description 08/22/2025 Orders Only [facility] [place] [place] [address] [place] [address] [place] [address] Guillermo Manning MD Chronic pain syndrome (Primary Dx); Localized, primary osteoarthritis of ankle or foot, unspecified laterality 08/22/2025 Orders Only [facility] Phle[facility] [place] [address] [place] [address] [place] [address] Guillermo Manning MD Localized, primary osteoarthritis of ankle or foot, unspecified laterality (Primary Dx); Chronic pain syndrome from Last 3 Months Family History Medical History Relation Comments Colon cancer Sister Relation Status Comments Sister Social History Tobacco Use Types Packs/Day Years [...] on file Sexual Orientation Not on file Last Filed Vital Signs Vital Sign Reading Time Taken Comments Blood Pressure 128/80 01/16/2017 4:17 AM EDT Pulse - - Temperature - - Respiratory Rate - - Oxygen Saturation - - Inhaled Oxygen Concentration - - Weight 74.1 kg (163 lb 6.4 oz) 01/16/2017 4:17 A M EDT Height 160 cm (5' 3 ) 01/16/2017 4:17 AM EDT Body Mass Index 28.95 01/16/2017 4:17 AM EDT Plan of Treatment Health Maintenance Due Date Last Done Comments Adult Td,Tdap Booster 1970 DEPRESSION SCREENING 1982 HEPATITIS C SCREENING 1988 HIV ONE-TIME SCREENING (18-6 5 YEARS) 1988 SMOKING STATUS SCREENING (On ce After 26 Yrs) 1996 MAMMOGRAM 2010 COLOGUARD 2015 COLONOSCOPY 2015 COLORECTAL CANCER SCREENING 2015 FIT TEST 2015 FOBT 2015 SIGMOIDOSCOPY 2015 VIRTUAL COLONOSCOPY 2015 PAP SMEAR 01/07/2020 01/06/2017 PNEUMOCOCCAL VACCINES (50+ years) (1 of 1 - PCV) 2020 ZOSTER VACCINES (1 of 2) 2020 INFLUENZA VACCINE (#1) 2025 COVID-19 VACCINE (3 - 2024-2 6 season) 2025 06/25/2021, 05/28/2021 LIPID PANEL 08/22/2030 08/22/2025, 09/30/2019 RSV VACCINE (1 - 1-dose 75+ series) 2045 HEPATITIS A VACCINES Aged Out No long er eligible based on patient's age to complete this topic HIB VACCINES Aged Out No longer eligi ble based on patient's age to complete this topic IPV VACCINES Aged Out No longer eligi ble based on patient's age to complete this topic MENINGOCOCCAL VACCINES (ACWY) Aged Out No longer eligible based on patient's age to complete this topic MENINGOCOCCAL VACCINES (B) Aged Out N o longer eligible based on patient's age to complete this topic Medical Devices Not on file Procedures Procedure Name Priority Date/Time Associated Diagnosis Comments URINALYSIS WITH REFLEX TO URINE CULTURE Routine 08/22/2025 8:26 AM EST Chronic pain syndrome Localized, primary osteoarthritis of ankle or foot, unspecified laterality THYROID STIMULATING HORMONE (TSH) Routine 08/22/2025 8:26 AM EST Chronic pain syndrome Localized, primary osteoarthritis of ankle or foot, unspecified laterality LFTS (HEPATIC PANEL) Routine 08/22/2025 8:26 AM EST Chronic pain syndrome Localized, primary osteoarthritis of ankle or foot, unspecified laterality LIPID PANEL Routine 08/22/2025 8:26 AM EST Chronic pain syndrome Localized, primary osteoarthritis of ankle or foot, unspecified laterality CBC Routine 08/22/2025 8:26 AM EST Chronic pain syndrome Localized, primary osteoarthritis of ankle or foot, unspecified laterality BASIC METABOLIC PANEL (BMP) Routine 08/22/2025 8:26 AM EST Chronic pain syndrome Localized, primary osteoarthritis of ankle or foot, unspecified laterality from Last 3 Months Results * Urinalysis with Reflex to Urine Culture (08/22/2025 8:26 AM EST) Color Yellow Yellow 08/22/2025 3:37 PM EST [facility] Clarity Clear Clear 08/22/2025 3:37 PM EST [facility] Glucose Negative Negative 08/22/2025 3:37 PM [facility] Bilirubin Urine Negative Negative 3:37 PM [facility] Ketone Urine Negative Negative 08/22/2025 3:37 PM [facility] Specific [place] 1.020 1.001 - 1.035 08/22/2025 3:37 PM [facility] Blood Negative Negative 08/22/2025 3:37 PM [facility] pH 6.5 5.0 - 8.0 08/22/2025 3:37 PM [facility] Protein Negative Negative 08/22/2025 3:37 PM [facility] Nitrites Negative Negative 08/22/2025 3:37 PM [facility] Leukocyte Esterase Negative Negative 08/22/2025 3:37 PM [facility] Urobilinogen Negative Negative 08/22/2025 3:37 PM [facility] Urine (Urine, Voided) Non-Blood Collection / Unknown 08/22/2025 8:26 AM EST 08/22/2025 8:26 AM EST us Guillermo Manning MD LAB URINE ORDERABLES Final Result [address] [address] * (ABNORMAL) Hepatic Panel (LFTs) (08/22/2025 8:26 AM EST) AST 32 <33 U/L 08/22/2025 2:51 PM [facility] ALT 25 <34 U/L 08/22/2025 2:51 PM [facility] Alkaline Phosphatase 164(H) 40 - 130 U/L 08/22/2025 2:51 PM [facility] Bilirubin, Total 0.4 0.0 - 1.2 mg/dL 08/22/2025 2:51 PM [facility] Bilirubin, Direct 0.1 0.0 - 0.3 mg/dL 08/22/2025 2:51 PM [facility] Total Protein 8.2 6.4 - 8.3 g/dL 08/22/2025 2:51 PM [facility] Albumin 4.7 3.5 - 5.2 g/dL 08/22/2025 2:51 PM [facility] Globulin 3.5 1.9 - 4.1 g/dL 08/22/2025 2:51 PM [facility] Blood (Blood) Venipuncture / Unknown 08/22/2025 8:26 AM EST 08/22/2025 8:26 AM EST us Gulilermo Manning MD LAB BLOOD BKR ORDERA BLES Final Result [facility] [address] [place], [place] [id number] * (ABNORMAL) CBC (08/22/2025 8:26 AM EST) WBC 6.89 4.00 - 11.00 K/uL 08/22/2025 1:44 PM [facility] RBC 4.40 4.00 - 5.20 M/uL 08/22/2025 1:44 PM [facility] Hemoglobin 14.9 12.0 - 16.0 g/dL 08/22/2025 1:44 PM [facility] Hematocrit 43.9 36.0 - 46.0 % 08/22/2025 1:44 PM [facility] MCV 99.8 80.0 - 100.0 fL 08/22/2025 1:44 PM [facility] MCH 33.9(H) 27.0 - 31.0 pg 08/22/2025 1:44 PM [facility] MCHC 33.9 32.0 - 36.0 g/dL 08/22/2025 1:44 PM [facility] PLT 200 150 - 450 K/uL 08/22/2025 1:44 PM [facility] MPV 11.0 8.4 - 12.0 fL 08/22/2025 1:44 PM [facility] RDW-CV 11.7 11.5 - 14.5 % 08/22/2025 1:44 PM [facility] Absolute NRBC 0.00 <=0.00 K cells/uL 08/22/2025 1:44 PM [facility] NRBC 0.0 <=0.0 /100 WBCs 08/22/2025 1:44 PM [facility] Blood (Blood) Venipuncture / Unknown 08/22/2025 8:26 AM EST 08/22/2025 8:26 AM EST us Guillermo Manning MD LAB BLOOD BKR ORDERA BLES Final Result Performing Organization Address City/[facility]/ZIP Co de Phone Number [address] [address] * Thyroid Stimulating Hormone (TSH) (08/22/2025 8:26 AM EST) TSH 1.02 0.40 - 5.00 uIU/mL 08/22/2025 2:51 PM [facility] Blood (Blood) Venipuncture / Unknown 08/22/2025 8:26 AM EST 08/22/2025 8:26 AM EST us Guillermo Manning MD LAB BLOOD BKR ORDERA BLES Final Result Performing Organization Address [facility] de Phone Number [address] [address] * (ABNORMAL) Lipid Panel (08/22/2025 8:26 AM EST) Cholesterol 235(H) <200 mg/dL 08/22/2025 2:51 PM [facility] HDL 110 >=40 mg/dL 08/22/2025 2:51 PM [facility] Calculated LDL 110 <130 mg/dL 08/22/2025 2:51 PM [facility] Comment:LDL is calculated us ing the Pradhan-NIH equation (TIFFANY Cardiol. 2019February 13;5(5):540-548). Non-HDL Cholesterol 125 mg/dL 08/22/2025 2:51 PM [facility] Comment:Guidelines suggest a non-HDL cholesterol goal 30 mg/dL higher than the patient-specific LDL cholesterol goal. Cardiac Risk Ratio 2.1 0.0 - 5.0 2024 2:51 PM [facility] Triglycerides 89 <=150 mg/dL 08/22/2025 2:51 PM [facility] Blood (Blood) Venipuncture / Unknown 08/22/2025 8:26 AM EST 08/22/2025 8:26 AM EST us Guillermo Manning MD LAB BLOOD BKR ORDERA BLES Final Result [facility] [address] [place] [address] * (ABNORMAL) Basic Metabolic Panel (BMP) (08/22/2025 8:26 AM EST) Sodium 135(L) 136 - 145 mmol/L 08/22/2025 2:51 PM [facility] Potassium 4.3 3.4 - 5.1 mmol/L 08/22/2025 2:51 PM [facility] Comment:NOTE: Specimen hemol yzed. Results may be falsely increased. Chloride 97(L) 98 - 107 mmol/L 08/22/2025 2:51 PM [facility] CO2 26 20 - 31 mmol/L 08/22/2025 2:51 PM [facility] Anion Gap 12 3 - 17 mmol/L 08/22/2025 2:51 PM [facility] BUN 11 6 - 23 mg/dL 08/22/2025 2:51 PM [facility] Creatinine 0.40(L) 0.50 - 1.00 mg/dL 08/22/2025 2:51 PM [facility] eGFR 118 >59 mL/min/1.7 3m2 08/22/2025 2:51 PM [facility] Comment:Estimated glomerular filtration rate calculated using the CKD-EPI refit equation. Glucose 96 70 - 99 mg/dL 08/22/2025 2:51 PM [facility] Calcium 10.2 8.5 - 10.5 mg/dL 08/22/2025 2:51 PM [facility] Blood (Blood) Venipuncture / Unknown 08/22/2025 8:26 AM EST 08/22/2025 8:26 AM EST Guillermo Manning MD LAB BLOOD BKR ORDERA BLES Final Result [address] [address] from Last 3 Months Insurance O O O O O O O O O Member Subscriber Plan / Payer (Ef fective 2018-Present) Name:Noam Whitley Relation to Subscriber:Self Name:NOAM WHITLEY Payer ID:Not on file Type:HMO Address: [place] [phone] Care Teams Deputy Sheriff/Investigator Relationship Specialty Start Date End Date Shawn Stanton DO [address] [place] [id number] PCP - General 10/19/17 Additional Source Comments The information contained in this document represents components of the legal health record. It is not the complete legal health record.[facility]
== END 2025-08-28 15:01 | disposition home or self-care (01) ==
LOC: HO.MAMMO 15:00
PROVIDERS: PCP Internal Medicine; Visit Provider Internal Medicine
DX: Z12.31 Encounter for screening mammogram for malignant neoplasm of breast (principal)
CPT/HCPCS: 77063; 77067

== ENCOUNTER → 2025-08-28 15:15 | Outpatient (BNV) | payer OTHER, SELFPAY | PROVIDERS: PCP Internal Medicine; Visit Provider Internal Medicine | DX: Z12.31 Encounter for screening mammogram for malignant neoplasm of breast (principal) | CPT/HCPCS: 77063; 77067 ==

== ENCOUNTER 2025-09-08 15:18 | Outpatient (AMB) | payer OTHER, SELFPAY ==
[2025-09-08 15:16] VITALS: BP 143/76; PULSE 72; RESP 16; TEMP 36.6; O2SAT 98; BMI 28.5
--- NOTE | 2025-09-08 15:16 | A.OFFPC_ITS ---
Vital Signs 09/08/25 15:16 Height 5 ft 5 in Weight 171 lb BMI 28.5 BP 143/76 H Blood Pressure Location Lt brachial Position Sitting Respiration 16 Pulse 72 Pulse Source Pulse Oximeter Temp 97.8 F Temp Source Temporal Artery Scan Pulse Oximetry (%) 98 Oxygen Delivery Method Room Air Intake Visit Reasons: 3 month follow - see comments Retail Experience Specialist Required: No Accompanied by: Self / Same As Patient Allergies codeine Allergy (Unknown, Verified 09/08/25 15:16) rash when she was younger gabapentin Allergy (Unknown, Verified 09/08/25 15:16) Rash Penicillins Allergy (Unknown, Verified 09/08/25 15:16) Rash Sulfa (Sulfonamide Antibiotics) Adverse Reaction (Unknown, Verified 09/08/25 15:16) yeast infection Tobacco use date assessed: 06/09/25 Dental Screening Dental Screen Date: 06/09/25 HPI HPI Comments History of Present Illness Details History of Present Illness - The patient is a 54 year old individua l presenting for follow-up for chronic pain management and review of recent test results. - The patient has a history of chronic p ain stemming from a severe left leg injury in 1991, which involved the fracture of three bones in the ankle. - This injury resulted in severe nerve d amage, and subsequent diagnoses of tarsal tunnel syndrome and reflex sympathetic dystrophy (RSD) within the first two years post-injury. - The patient has undergone three surger ies on the left ankle, including a tarsal tunnel release that was unsuccessful and a second surgery to remove hardware that the patient's body rejected. - X-rays from 2002 and 2007 showed progr essive bone spurs, which the patient states are extremely painful to walk on. - The patient has not seen a specialist for these conditions in the last five years. - The patient is on a high dose of opioi ds for pain management, including morphine 60 mg twice a day, oxycodone, and tramadol, with a total morphine milligram equivalent (MME) of 172. - The patient reports that the pain is n ow moving to the hip as a result of altered gait for 32 years and also reports a recent reinjury to a shoulder. - The patient has a history of hypothyro idism, and recent labs show thyroid levels are within the normal range. - A mammogram on August 28 was repor re as fine but requires follow-up with an ultrasound and another test on September 15. Social History - The patient expresses financial strain , citing the cost of medical appointments and recovering from being out of work for a week and a half. Results - Labs (08/22): - WBC, hemoglobin, and hematocrit are no rmal. - Thyroid panel is within normal range. - Alkaline phosphatase is elevated. - Lipid panel: Total cholesterol is slig htly high; HDL and LDL are within normal limits. - Imaging: - Mammogram (08/28): Reported as fine, b ut requires follow-up with an ultrasound and another test scheduled for September 15. [facility] Medical History DJD (degenerative joint disease), ankle and foot Chronic pain syndrome Multinodular thyroid Surgical History Hx of tonsillectomy History of surgery Family History Mother Colon cancer Father Family history of prostate problems Sister Colon cancer Metastasis to lung Liver cancer Social History Housing: House Alcohol intake: current Alcohol intake frequency: holidays/special occasions only Patient Tobacco Use Status: Never used Tobacco service: No Current occupational status: employed Cognitive needs: Yes (cane) Hearing needs: No Vision needs: Yes (reading glasses) Questionnaire PHQ-9 Over the last 2 weeks, how often have you been bothered by any of the following problems? 1. Little interest or pleasure in doing things: not at all 2. Feeling down, depressed, or hopeless: not at all 3. Trouble falling or staying asleep, or sleeping too much: not at all 4. Feeling tired or having little energy: not at all 5. Poor appetite or overeating: not at all 6. Feeling bad about yourself - or that you are a failure or have let yourself or your family down: not at all 7. Trouble concentrating on things, such as reading the newspaper or watching television: not at all 8. Moving or speaking so slowly that other people could have noticed. Or the opposite - being so fidgety or restless that you have been moving around a lot more than usual: not at all 9. Thoughts that you would be better off or of hurting yourself in some way: not at all Total score: 0 Source: Developed by Drs. Shawn Mejia, Carmen Stover, Jose Garrett and colleagues, with an educational janay from [employer]. Thrive Questionnaire Date Thrive assessed: 06/09/25 I am a: Patient What is your living situation today?: I have a steady place to live Within the past 12 months, did the food you bought not last and you didn't have the money to get more?: Never true Within the past 12 months, did you worry whether your food would run out before you got money to buy more?: Never true Do you have trouble paying for medicines?: No Do you have trouble getting transportation to medical appointments?: No Do you have trouble paying your heating and electricity bill?: No Do you have trouble taking care of your child, family member or friend?: No Do you have trouble with day-to-day activities such as bathing, preparing meals, shopping, managing finances, etc.?: No Are you currently unemployed and looking for a job?: No Are you interested in more education?: No Please select the resources that you would like help with: None Currently or been in a relationship where the following occur: No concerns reported THRIVE Score: 0 AUDIT C Alcohol Use Questionnaire (AUDIT-C) 1. How often do you have a drink containing alcohol?: Monthly or less 2. How many drinks containing alcohol do you have on a typical day when you are drinking?: 1 or 2 3. How often do you have six or more drinks on one occasion?: Never Total Score: 1 TOREY-7 AMB Questionnaire TOREY-7 Date TOREY - 7 assessed: 06/09/25 Feeling nervous, anxious, or on edge: 0 = Not at all Not being able to stop or control worryin = Not at all Worrying too much about different things: 0 = Not at all Trouble relaxin = Not at all Being so restless that it is hard to sit still: 0 = Not at all Becoming easily annoyed or irritable: 0 = Not at all Feeling afraid as if something awful might happen: 0 = Not at all Total TORYE-7 score (0-4 normal; 5-9 mild; 10-14 moderate; 15-21 severe): 0 Source: Developed by Drs. Shawn Mejia, Carmen Stover, Jose Garrett and colleagues, with an educational janay from [employer]. Review of Systems Narrative Review of Systems - Musculoskeletal: Reports chronic, excruciating pain in the left ankle, which is worse with the slightest bump during flare-ups. - Reports pain is migrating to the hip and a recent reinjury of the shoulder. - Cardiovascular: Reports that heart rate and blood pressure go through the roof during appointments. - Breast: Reports being told to return for more tests including an ultrasound after a recent mammogram. Physical exam (Primary Care) Vital Signs: Last Vital Signs Temp 97.8 F 09/08/25 15:16 Pulse 72 09/08/25 15:16 Resp 16 09/08/25 15:16 BP 143/76 H 09/08/25 15:16 Pulse Ox 98 09/08/25 15:16 Oxygen Delivery Method Room Air 09/08/25 15:16 BMI result Body Mass Index 28.5 Tobacco/Smoking Status: Tobacco use Status Tobacco use date assessed 06/09/25 09/08/25 15:17 Patient Tobacco Use Status Never used Tobacco 09/08/25 15:17 PHQ-9: PHQ-9 Score PHQ-9: Total score 0 09/08/25 15:28 Thrive Assessment: Date of Thrive Assessment Date Thrive assessed 06/09/25 09/08/25 15:17 Currently or been in a relationship where the following occur: No concerns reported Narrative Physical Exam General: Appearance normal, both eyes and all related structures Nutritional Appearance: Well nourished Orientation/consciousness: Patient oriented x3 Limitations: Severe limitations due to tarsal tunnel syndrome and RSD Head: Normal to inspection Neck: Normal visual inspection Chest: Normal palpation of entire chest wall Respiratory: Normal respiratory effort Neurology: Patient oriented x3, severe nerve damage in left ankle due to previous injury and surgeries Office Procedures Flu Questionnaire Does the patient have a severe egg allergy?: No Does the patient have severe life threatening allergies?: No Does the patient have a fever or illness today?: No Has the patient ever had Guillain-Havelock Syndrome?: No Has the patient ever had any past reaction to a flu shot?: No Immunizations Fluarix [id number] (PF) 45 mcg (15 mcg x 3)/0.5 mL IM syringe Performing Provider: Guillermo Manning MD [facility] Documented (not given) by: DIANE Valencia on 09/08/25 15:28 Reason Not Given: Allergic to Vaccine Component Coding Level of Care Code Complex visit Add On G2211 Diagnoses Chronic pain syndrome G89.4 Assessment & Plan Assessment & Plan (1) Chronic pain syndrome: Code(s): G89.4 - Chronic pain syndrome Category: Medical Plan Plan - Chronic Pain Management: The patient will be referred to a pain specialist for a comprehensive evaluation and management of chronic pain and long-term opioid therapy. - I will call the pain clinic on the patient's behalf to ensure the referral is processed and an appointment is scheduled. - Diagnostics: New x-rays of the ankles have been ordered to assess the current state of the bone spurs and arthritis. - The patient was advised to have the imaging done within the [facility] system for easier access by the pain specialist. - X-rays of the shoulder will also be done. - Abnormal Mammogram: The patient will proceed with the scheduled follow-up ultrasound and additional testing on September 15. - Hypothyroidism: Thyroid medication will not be adjusted as recent labs show levels are within the normal range. - Specialist Consultation: A referral to a physician support coordinator will be considered based on the recommendations from the pain management clinic. - Continuation of current opioid prescriptions is contingent on this specialist consultation. Discussion Notes I had a detailed discussion with the patient regarding my discomfort with continuing the current high-dose opioid regimen, which has a morphine milligram equivalent of 172, without an updated evaluation from a specialist. I explained that the patient has not been seen by a specialist in over five years, and for me to continue prescribing as the primary care provider, an updated consultation is a required a rule for safe management. The patient expressed feelings of being threatened and noted significant financial concerns about the cost of another specialist visit, believing nothing further can be done. I acknowledged the patient's concerns and frustration but stood firm on the need for a pain management consultation to determine the appropriate ongoing treatment plan. I offered to help facilitate the appointment. We reviewed the lab results, confirming that the thyroid function is normal and no medication adjustment is needed, but noting an elevated alkaline phosphatase that requires monitoring. The plan moving forward includes obtaining new ankle x-rays and attending the pain management consultation, after which we will reassess the care plan. Patient Instructions - Please proceed to get the new X-rays of your ankles and shoulder as ordered. - It is recommended to have these done at a [facility] facility so the specialist can easily see the images. - Our office has sent a referral to a automatic paint sprayer operator and will call them to help schedule an appointment for you. - It is very important that you attend this appointment so we can determine the best and safest way to manage your pain. - Continue taking all your current medications, including your pain medicine, as prescribed. - Your recent blood tests show your thyroid is stable, so you do not need to change your thyroid medication. - Keep your scheduled appointment for a follow-up ultrasound and breast imaging on September 15. Orders: Orders Influenza [id number] Immunization Today Z23 - Encounter for immunization
--- OUTSIDE RECORDS SUMMARY | 2025-09-08 19:59 | XMS_ITS | Encounter Summary ---
Author Organization [facility] Address [address] [address] Phone Care Team Providers Care Senior Bi Architect Name Role Phone Shawn Stanton DO Primary Care Provider [phone] Encounter Details Date Type Department Care Team (Latest Contact Info) Description 12/20/2021 Transcribe Orders Virtual Department [address] [place] [address] Shawn Stanton DO [address] [place] [address] COVID (Primary Dx); Mild persistent asthma without [...] complication documented in this encounter Care Teams Senior Bi Architect Relationship Specialty Start Date End Date Shawn Stanton DO [address] [place] [address] PCP - General 10/19/17 documented as of this encounter Additional Source Comments The information contained in this document represents components of the legal health record. It is not the complete legal health record.[facility]
--- OUTSIDE RECORDS SUMMARY | 2025-09-08 19:59 | XMS_ITS | Clinical Summary ---
Author Organization [facility] Address [address] [address] Phone Care Team Providers Care Vermin Exterminator Name Role Phone Shawn Stanton DO Primary Care Provider Allergies Active Allergy Reactions Criticality Noted Date [...] Department Care Team Description 08/22/2025 Orders Only [facility] [place] [address] [place] [address] [place] [address] Guillermo Manning MD Chronic pain syndrome (Primary Dx); Localized, primary osteoarthritis of ankle or foot, unspecified laterality 08/22/2025 Orders Only [facility] [address] [place] [address] [place] [address] Guillermo Manning MD Localized, primary osteoarthritis of [...] Color Yellow Yellow 08/22/2025 3:37 PM EST [facility] Clarity Clear Clear 08/22/2025 3:37 PM EST [facility] Glucose Negative Negative 08/22/2025 3:37 PM EST [facility] Bilirubin Urine Negative Negative 3:37 PM [facility] Ketone Urine Negative Negative 08/22/2025 3:37 PM [facility] Specific [place] 1.020 1.001 - 1.035 08/22/2025 3:37 PM [facility] Blood Negative Negative 08/22/2025 3:37 PM [facility] pH 6.5 5.0 - 8.0 08/22/2025 3:37 PM [facility] Protein Negative Negative 08/22/2025 3:37 PM [facility] Nitrites Negative Negative 08/22/2025 3:37 PM [facility] Leukocyte Esterase Negative Negative 08/22/2025 3:37 PM [facility] Urobilinogen Negative Negative 08/22/2025 3:37 PM [facility] Urine (Urine, Voided) Non-Blood Collection / Unknown 08/22/2025 8:26 AM EST 08/22/2025 8:26 AM EST us Guillermo Manning MD LAB URINE ORDERABLES Final Result [facility] [address] [place] [address] * (ABNORMAL) Hepatic Panel (LFTs) (08/22/2025 8:26 AM EST) AST 32 <33 U/L 08/22/2025 2:51 PM [facility] ALT 25 <34 U/L 08/22/2025 2:51 PM [facility] Alkaline Phosphatase 164(H) 40 - 130 U/L 08/22/2025 2:51 PM [facility] Bilirubin, Total 0.4 0.0 - 1.2 mg/dL 08/22/2025 2:51 PM [facility] Bilirubin, Direct 0.1 0.0 - 0.3 mg/dL 08/22/2025 2:51 PM [facility] Total Protein 8.2 6.4 - 8.3 g/dL 08/22/2025 2:51 PM [facility] Albumin 4.7 3.5 - 5.2 g/dL 08/22/2025 2:51 PM [facility] Globulin 3.5 1.9 - 4.1 g/dL 08/22/2025 2:51 PM [facility] Blood (Blood) Venipuncture / Unknown 08/22/2025 8:26 AM EST 08/22/2025 8:26 AM EST us Guillermo Manning MD LAB BLOOD BKR ORDERA BLES Final Result [facility] [address] [place] [address] * (ABNORMAL) CBC (08/22/2025 8:26 AM EST) WBC 6.89 4.00 - 11.00 K/uL 08/22/2025 1:44 PM [facility] RBC 4.40 4.00 - 5.20 M/uL 08/22/2025 1:44 PM [facility] Hemoglobin 14.9 12.0 - 16.0 g/dL 08/22/2025 1:44 PM [facility] Hematocrit 43.9 36.0 - 46.0 % 08/22/2025 1:44 PM [facility] MCV 99.8 80.0 - 100.0 fL 08/22/2025 1:44 PM [facility] MCH 33.9(H) 27.0 - 31.0 pg 08/22/2025 1:44 PM [facility] MCHC 33.9 32.0 - 36.0 g/dL 08/22/2025 1:44 PM [facility] PLT 200 150 - 450 K/uL 08/22/2025 1:44 PM [facility] MPV 11.0 8.4 - 12.0 fL 08/22/2025 1:44 PM [facility] RDW-CV 11.7 11.5 - 14.5 % 08/22/2025 1:44 PM [facility] Absolute NRBC 0.00 <=0.00 K cells/uL 08/22/2025 1:44 PM [facility] NRBC 0.0 <=0.0 /100 WBCs 08/22/2025 1:44 PM EST [facility] Blood (Blood) Venipuncture / Unknown 08/22/2025 8:26 AM EST 08/22/2025 8:26 AM EST us Guillermo Manning MD LAB BLOOD BKR ORDERA BLES Final Result Performing Organization Address City/[facility]/ZIP Co de Phone Number [address] [address] * Thyroid Stimulating Hormone (TSH) (08/22/2025 8:26 AM EST) TSH 1.02 0.40 - 5.00 uIU/mL 08/22/2025 2:51 PM [facility] Blood (Blood) Venipuncture / Unknown 08/22/2025 8:26 AM EST 08/22/2025 8:26 AM EST us Guillermo Manning MD LAB BLOOD BKR ORDERA BLES Final Result Performing Organization Address [facility] Co de Phone Number [address] [address] * (ABNORMAL) Lipid Panel (08/22/2025 8:26 AM EST) Cholesterol 235(H) <200 mg/dL 08/22/2025 2:51 PM [facility] HDL 110 >=40 mg/dL 08/22/2025 2:51 PM [facility] Calculated LDL 110 <130 mg/dL 08/22/2025 2:51 PM [facility] Comment:LDL is calculated us ing the Pradhan-NIH equation (TIFFANY Cardiol. 2019February 13;5(5):540-548). Non-HDL Cholesterol 125 mg/dL 08/22/2025 2:51 PM [facility] Comment:Guidelines suggest a non-HDL cholesterol goal 30 mg/dL higher than the patient-specific LDL cholesterol goal. Cardiac Risk Ratio 2.1 0.0 - 5.0 2024 2:51 PM [facility] Triglycerides 89 <=150 mg/dL 08/22/2025 2:51 PM [facility] Blood (Blood) Venipuncture / Unknown 08/22/2025 8:26 AM EST 08/22/2025 8:26 AM EST Guillermo Manning MD LAB BLOOD BKR ORDERA BLES Final Result [address] [address] * (ABNORMAL) Basic Metabolic Panel (BMP) (08/22/2025 8:26 AM EST) Sodium 135(L) 136 - 145 mmol/L 08/22/2025 2:51 PM [facility] Potassium 4.3 3.4 - 5.1 mmol/L 08/22/2025 2:51 PM [facility] Comment:NOTE: Specimen hemol yzed. Results may be falsely increased. Chloride 97(L) 98 - 107 mmol/L 08/22/2025 2:51 PM [facility] CO2 26 20 - 31 mmol/L 08/22/2025 2:51 PM [facility] Anion Gap 12 3 - 17 mmol/L 08/22/2025 2:51 PM [facility] BUN 11 6 - 23 mg/dL 08/22/2025 2:51 PM [facility] Creatinine 0.40(L) 0.50 - 1.00 mg/dL 08/22/2025 2:51 PM [facility] eGFR 118 >59 mL/min/1.7 3m2 08/22/2025 2:51 PM [facility] Comment:Estimated glomerular filtration rate calculated using the CKD-EPI refit equation. Glucose 96 70 - 99 mg/dL 08/22/2025 2:51 PM [facility] Calcium 10.2 8.5 - 10.5 mg/dL 08/22/2025 2:51 PM [facility] Blood (Blood) Venipuncture / Unknown 08/22/2025 8:26 AM EST 08/22/2025 8:26 AM EST Guillermo Manning MD LAB BLOOD BKR ORDERA BLES Final Result [address] [address] from Last 3 Months Insurance O O O O O O O O O Care Teams Vermin Exterminator Relationship Specialty Start Date End Date Shawn Stanton DO [address] [place] [id number] PCP - General 10/19/17 Additional Source Comments The information contained in this document represents components of the legal health record. It is not the complete legal health record.[facility]
--- OUTSIDE RECORDS SUMMARY | 2025-09-08 19:59 | XMS_ITS | Encounter Summary ---
Author Organization [facility] Address [address] [facility] [address] [place] [address] Phone Care Team Providers Care Skilled Nursing Facility Counselor Name Role Phone Shawn Stanton DO Primary Care Provider Encounter Details Date Type Department Care Team (Late st Contact Info) Description 08/22/2025 Orders Only [facility] Phleb [address] [place] [address] Guillermo Manning MD [address] [place] [address] [address] [place], [place] [phone] Chronic pain syndrome (Primary Dx); Localized, primary [...] Color Yellow Yellow 08/22/2025 3:37 PM EST [facility] Clarity Clear Clear 08/22/2025 3:37 PM [facility] Glucose Negative Negative 08/22/2025 3:37 PM [facility] Bilirubin Urine Negative Negative 3:37 PM [facility] Ketone Urine Negative Negative 08/22/2025 3:37 PM [facility] Specific [place] 1.020 1.001 - 1.035 08/22/2025 3:37 PM [facility] Blood Negative Negative 08/22/2025 3:37 PM [facility] pH 6.5 5.0 - 8.0 08/22/2025 3:37 PM [facility] Protein Negative Negative 08/22/2025 3:37 PM [facility] Nitrites Negative Negative 08/22/2025 3:37 PM [facility] Leukocyte Esterase Negative Negative 08/22/2025 3:37 PM [facility] Urobilinogen Negative Negative 08/22/2025 3:37 PM [facility] Urine (Urine, Voided) Non-Blood Collection / Unknown 08/22/2025 8:26 AM EST 08/22/2025 8:26 AM EST us Guillermo Manning MD LAB URINE ORDERABLES Final Result Performing Organization Address City/[facility]/ZIP Co de Phone Number [address] [address] * Thyroid Stimulating Hormone (TSH) (08/22/2025 8:26 AM EST) TSH 1.02 0.40 - 5.00 uIU/mL 08/22/2025 2:51 PM [facility] Blood (Blood) Venipuncture / Unknown 08/22/2025 8:26 AM EST 08/22/2025 8:26 AM EST us Guillermo Manning MD LAB BLOOD BKR ORDERA BLES Final Result [address] [address] * (ABNORMAL) Hepatic Panel (LFTs) (08/22/2025 8:26 AM EST) AST 32 <33 U/L 08/22/2025 2:51 PM [facility] ALT 25 <34 U/L 08/22/2025 2:51 PM [facility] Alkaline Phosphatase 164(H) 40 - 130 U/L 08/22/2025 2:51 PM [facility] Bilirubin, Total 0.4 0.0 - 1.2 mg/dL 08/22/2025 2:51 PM [facility] Bilirubin, Direct 0.1 0.0 - 0.3 mg/dL 08/22/2025 2:51 PM [facility] Total Protein 8.2 6.4 - 8.3 g/dL 08/22/2025 2:51 PM [facility] Albumin 4.7 3.5 - 5.2 g/dL 08/22/2025 2:51 PM [facility] Globulin 3.5 1.9 - 4.1 g/dL 08/22/2025 2:51 PM [facility] Blood (Blood) Venipuncture / Unknown 08/22/2025 8:26 AM EST 08/22/2025 8:26 AM EST us Guillermo Manning MD LAB BLOOD BKR ORDERA BLES Final Result Performing Organization Address City/State/[facility] Co de Phone Number [address] [address] * (ABNORMAL) Lipid Panel (08/22/2025 8:26 AM EST) Cholesterol 235(H) <200 mg/dL 08/22/2025 2:51 PM [facility] HDL 110 >=40 mg/dL 08/22/2025 2:51 PM [facility] Calculated LDL 110 <130 mg/dL 08/22/2025 2:51 PM [facility] Comment:LDL is calculated us ing the Pradhan-NIH equation (TIFFANY Cardiol. 2019February 13;5(5):540-548). Non-HDL Cholesterol 125 mg/dL 08/22/2025 2:51 PM [facility] Comment:Guidelines suggest a non-HDL cholesterol goal 30 mg/dL higher than the patient-specific LDL cholesterol goal. Cardiac Risk Ratio 2.1 0.0 - 5.0 2024 2:51 PM [facility] Triglycerides 89 <=150 mg/dL 08/22/2025 2:51 PM [facility] Blood (Blood) Venipuncture / Unknown 08/22/2025 8:26 AM EST 08/22/2025 8:26 AM EST us Guillermo Manning MD LAB BLOOD BKR ORDERA BLES Final Result Performing Organization Address City/State/[facility] Co de Phone Number [facility] [address] [place] [address] * (ABNORMAL) CBC (08/22/2025 8:26 AM EST) WBC 6.89 4.00 - 11.00 K/uL 08/22/2025 1:44 PM [facility] RBC 4.40 4.00 - 5.20 M/uL 08/22/2025 1:44 PM [facility] Hemoglobin 14.9 12.0 - 16.0 g/dL 08/22/2025 1:44 PM [facility] Hematocrit 43.9 36.0 - 46.0 % 08/22/2025 1:44 PM [facility] MCV 99.8 80.0 - 100.0 fL 08/22/2025 1:44 PM [facility] MCH 33.9(H) 27.0 - 31.0 pg 08/22/2025 1:44 PM [facility] MCHC 33.9 32.0 - 36.0 g/dL 08/22/2025 1:44 PM [facility] PLT 200 150 - 450 K/uL 08/22/2025 1:44 PM [facility] MPV 11.0 8.4 - 12.0 fL 08/22/2025 1:44 PM [facility] RDW-CV 11.7 11.5 - 14.5 % 08/22/2025 1:44 PM [facility] Absolute NRBC 0.00 <=0.00 K cells/uL 08/22/2025 1:44 PM [facility] NRBC 0.0 <=0.0 /100 WBCs 08/22/2025 1:44 PM [facility] Blood (Blood) Venipuncture / Unknown 08/22/2025 8:26 AM EST 08/22/2025 8:26 AM EST us Guillermo Manning MD LAB BLOOD BKR ORDERA BLES Final Result [address] [address] * (ABNORMAL) Basic Metabolic Panel (BMP) (08/22/2025 8:26 AM EST) Sodium 135(L) 136 - 145 mmol/L 08/22/2025 2:51 PM [facility] Potassium 4.3 3.4 - 5.1 mmol/L 08/22/2025 2:51 PM [facility] Comment:NOTE: Specimen hemol yzed. Results may be falsely increased. Chloride 97(L) 98 - 107 mmol/L 08/22/2025 2:51 PM [facility] CO2 26 20 - 31 mmol/L 08/22/2025 2:51 PM [facility] Anion Gap 12 3 - 17 mmol/L 08/22/2025 2:51 PM [facility] BUN 11 6 - 23 mg/dL 08/22/2025 2:51 PM [facility] Creatinine 0.40(L) 0.50 - 1.00 mg/dL 08/22/2025 2:51 PM [facility] eGFR 118 >59 mL/min/1.7 3m2 08/22/2025 2:51 PM [facility] Comment:Estimated glomerular filtration rate calculated using the CKD-EPI refit equation. Glucose 96 70 - 99 mg/dL 08/22/2025 2:51 PM [facility] Calcium 10.2 8.5 - 10.5 mg/dL 08/22/2025 2:51 PM EST [facility] Blood (Blood) Venipuncture / Unknown 08/22/2025 8:26 AM EST 08/22/2025 8:26 AM EST us Guillermo Manning MD LAB BLOOD BKR ORDERA BLES Final Result Performing Organization Address City/State/[facility] Co de Phone Number [facility] [address] [place] [address] documented in this encounter Visit Diagnoses Diagnosis Chronic pain syndrome- Primary Localized, primary osteoarthritis of ankle or foot, unspecified laterality documented in this encounter Care Teams Skilled Nursing Facility Counselor Relationship Specialty Start Date End Date Shawn Stanton DO [address] [place] [address] PCP - General 10/19/17 documented as of this encounter Additional Source Comments The information contained in this document represents components of the legal health record. It is not the complete legal health record.[facility]
--- OUTSIDE RECORDS SUMMARY | 2025-09-08 19:59 | XMS_ITS | Encounter Summary ---
Author Organization [facility] Address [address] [facility] [address] [place] [address] Phone Care Team Providers Care Secretary Name Role Phone Shawn Stanton Primary Care Provider Encounter Details Date Type Department Care Team (Late st Contact Info) Description 08/22/2025 Orders Only [address] [place] [address] Guillermo Manning MD [address] [place] [address] Drive [address] [place] [phone] Localized, primary osteoarthritis of ankle or foot, [...] syndrome documented in this encounter Care Teams Secretary Relationship Specialty Start Date End Date Shawn Stanton DO [address] [place] [phone] PCP - General 10/19/17 documented as of this encounter Additional Source Comments The information contained in this document represents components of the legal health record. It is not the complete legal health record.[facility]
--- OUTSIDE RECORDS SUMMARY | 2025-09-08 19:59 | XMS_ITS | Encounter Summary ---
Author Organization [facility] Address [address] [facility] [address] [place] [address] Phone Care Team Providers Care Family Law Specialist Name Role Phone Shawn Stanton DO Primary Care Provider Encounter Details Date Type Department Care Team (Latest Contact Info) Description 04/24/2018 Transcribe Orders [facility] Phleb [address] [place] [address] Shawn Stanton DO [address] [place] [address] Iron deficiency anemia due to chronic blood [...] EDT) SODIUM 136 133 - 146 mmol/L [facility] POTASSIUM 3.9 3.3 - 5.1 mmol/L [facility] CHLORIDE 97 96 - 108 mmol/L [facility] CO2 27 21 - 35 mmol/L [facility] BUN 12 6 - 19 mg/dL [facility] CREATININE 0.50 0.5 - 1.5 mg/dL [facility] GLUCOSE 109(H) 70 - 99 mg/dL [facility] ALBUMIN 4.2 3.9 - 4.8 g/dL [facility] TOTAL PROTEIN 7.3 6.5 - 8.0 g/dL [facility] CALCIUM 9.5 8.4 - 10.3 mg/dL [facility] ALKALINE PHOSPHATASE 118(H) 39 - 117 U/L [facility] TOTAL BILIRUBIN 0.3 0.0 - 1.2 mg/dL [facility] AST 27 0 - 37 U/L [facility] ALT 27 0 - 40 U/L [facility] GLOBULIN 3.1 1 - 4.8 g/dL [facility] EGFR 115 >59 mL/min/1.7 3m2 [facility] Comment:If patient is black, multiply result by 1.159. Estimated glomerular filtration rate calculated using the CKD-EPI equation. ANION GAP 16 10 - 20 mmol/L [facility] Blood 04/24/2018 1:14 PM EDT 04/24/2018 1:18 PM EDT us Shawn Stanton DO LAB BLOOD BKR ORDERABLES Fin al Result Performing Organization Address [facility] Co de Phone Number [address] [address] * Iron and iron binding capacity (04/24/2018 1:14 PM EDT) IRON 120 30 - 160 ug/dL [facility] IRON BINDING CAPACITY 339 228 - 428 ug/dL [facility] TRANSFERRIN SATURAT. 35 15 - 50 % [facility] Blood 04/24/2018 1:14 PM EDT 04/24/2018 1:18 PM EDT Shawn Stanton DO LAB BLOOD BKR ORDERABLES Fin al Result [address] [address] * Ferritin (04/24/2018 1:14 PM EDT) FERRITIN 25 13 - 150 ug/L [facility] Blood 04/24/2018 1:14 PM EDT 04/24/2018 1:18 PM EDT us Shawn Stanton DO LAB BLOOD BKR ORDERABLES Fin al Result [facility] [address] [place] [address] * (ABNORMAL) CBC and differential (04/24/2018 1:14 PM EDT) WBC 5.11 3.40 - 11.20 K/uL [facility] RBC 3.91 3.80 - 4.80 M/uL [facility] HGB 11.7(L) 12.0 - 15.0 g/dL [facility] HCT 35.0(L) 36.0 - 46.0 % [facility] PLT 199 130 - 400 K/uL [facility] MCV 89.5 79.0 - 98.0 fL [facility] MCH 29.9 27.0 - 34.8 pg [facility] MCHC 33.4 31.5 - 36.0 g/dL [facility] RDW 13.7 10.8 - 14.6 % [facility] MPV 10.7 9.4 - 12.4 fl [facility] NRBC 0.00 /100 WBCs [facility] ABSOLUTE NRBC 0.00 K/uL [facility] DIFF METHOD Auto [facility] NEUTS 68.0 45.30 - 77.70 % [facility] LYMPHS 23.5 12.30 - 39.70 % [facility] MONOS 6.5 4.10 - 12.80 % [facility] EOS 1.2 0 - 7.2 % [facility] BASOS 0.6 0 - 2.80 % [facility] Granulocytes, immature (%) 0.2 0.0 - 0.9 % [facility] ABSOLUTE NEUTS 3.48 1.40 - 7.70 K/uL [facility] ABSOLUTE LYMPHS 1.20 0.60 - 3.20 K/uL [facility] ABSOLUTE MONOS 0.33 0.11 - 0.59 K/uL [facility] ABSOLUTE EOS 0.06 0.01 - 0.50 K/uL [facility] ABSOLUTE BASOS 0.03 0.00 - 0.08 K/uL [facility] Granulocytes, immature 0.01 0.00 - 0.05 K/uL [facility] Blood 04/24/2018 1:14 PM EDT 04/24/2018 1:18 PM EDT us Shawn Stanton DO LAB BLOOD BKR ORDERABLES Fin al Result [facility] [address] [place] [address] documented in this encounter Visit Diagnoses Diagnosis Iron deficiency anemia due to chronic blood loss- Primary Iron deficiency anemia secondary to blood loss (chronic) documented in this encounter Care Teams Family Law Specialist Relationship Specialty Start Date End Date Shawn Stanton, [address] [place] [address] PCP - General 10/19/17 documented as of this encounter Additional Source Comments The information contained in this document represents components of the legal health record. It is not the complete legal health record.[facility]
--- OUTSIDE RECORDS SUMMARY | 2025-09-08 19:59 | XMS_ITS | Encounter Summary ---
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); [...] EST) SODIUM 135 133 - 146 mmol/L [facility] POTASSIUM 4.2 3.3 - 5.1 mmol/L [facility] CHLORIDE 98 96 - 108 mmol/L [facility] CO2 26 21 - 35 mmol/L [facility] BUN 13 6 - 19 mg/dL [facility] CREATININE <0.50(L) 0.5 - 1.5 mg/dL [facility] GLUCOSE 97 70 - 99 mg/dL [facility] ALBUMIN 4.1 3.9 - 4.8 g/dL [facility] TOTAL PROTEIN 7.2 6.5 - 8.0 g/dL [facility] CALCIUM 8.8 8.4 - 10.3 mg/dL [facility] ALKALINE PHOSPHATASE 107 39 - 117 U/L [facility] TOTAL BILIRUBIN 0.2 0.0 - 1.2 mg/dL [facility] AST 29 0 - 37 U/L [facility] ALT 25 0 - 40 U/L [facility] GLOBULIN 3.1 1 - 4.8 g/dL [facility] EGFR Not Done >59 mL/min/1.7 3m2 [facility] ANION GAP 15 10 - 20 mmol/L [facility] Blood 09/30/2019 8:17 AM EST 09/30/2019 8:21 AM EST us Shawn Stanton DO LAB BLOOD BKR ORDERABLES Fin al Result Performing Organization Address City/State/[facility] Co de Phone Number [address] [address] * (ABNORMAL) CBC and differential (09/30/2019 8:17 AM EST) WBC 4.09 3.40 - 11.20 K/uL [facility] RBC 3.74(L) 3.80 - 4.80 M/uL [facility] HGB 9.4(L) 12.0 - 15.0 g/dL [facility] HCT 31.3(L) 36.0 - 46.0 % [facility] PLT 260 130 - 400 K/uL [facility] MCV 83.7 79.0 - 98.0 fL [facility] MCH 25.1(L) 27.0 - 34.8 pg [facility] MCHC 30.0(L) 31.5 - 36.0 g/dL [facility] RDW 15.2(H) 10.8 - 14.6 % [facility] MPV 10.0 9.4 - 12.4 fl [facility] NRBC 0.00 0.00 /100 WBCs [facility] ABSOLUTE NRBC 0.00 0.00 K/uL [facility] DIFF METHOD Auto [facility] NEUTS 52.0 45.30 - 77.70 % [facility] LYMPHS 32.8 12.30 - 39.70 % [facility] MONOS 12.0 4.10 - 12.80 % [facility] EOS 2.0 0 - 7.2 % [facility] BASOS 1.0 0 - 2.80 % [facility] Granulocytes, immature (%) 0.2 0.0 - 0.9 % [facility] ABSOLUTE NEUTS 2.13 1.40 - 7.70 K/uL [facility] ABSOLUTE LYMPHS 1.34 0.60 - 3.20 K/uL [facility] ABSOLUTE MONOS 0.49 0.11 - 0.59 K/uL [facility] ABSOLUTE EOS 0.08 0.01 - 0.50 K/uL [facility] ABSOLUTE BASOS 0.04 0.00 - 0.08 K/uL [facility] Granulocytes, immature 0.01 0.00 - 0.05 K/uL [facility] Blood 09/30/2019 8:17 AM EST 09/30/2019 8:21 AM EST [facility] BLOOD BKR ORDERABLES Fin al Result Performing Organization Address [facility] Co de Phone Number [address] [address] * (ABNORMAL) Ferritin (09/30/2019 8:17 AM EST) FERRITIN 9(L) 13 - 150 ug/L [facility] Blood 09/30/2019 8:17 AM EST 09/30/2019 8:21 AM EST Shawn Romy DO LAB BLOOD BKR ORDERABLES Fin al Result Performing Organization Address [facility] Co de Phone Number [address] [address] * (ABNORMAL) Lipid panel (09/30/2019 8:17 AM EST) HDL 94 mg/dL [facility] Comment: Interpretation <40 mg/dL: Low HDL cholesterol (major risk factor for CHD) Greater than or equal to 60 mg/dL: High HDL cholesterol ( negative risk factor for CHD) HDL - cholesterol is affected by a number of factors, e.g. smoking, excerise, hormones, sex and age. CHOLESTEROL 209 0 - 240 mg/dL [facility] TRIGLYCERIDES 71 30 - 160 mg/dL [facility] LDL 101 50 - 129 mg/dL [facility] Comment: LDL levels in terms of risk for coronary heart disease: <100 mg/dL: Optimal 100-129 mg/dL: Near or above optimal 130-159 mg/dL: Borderline high 160-189 mg/dL: High >190 mg/dL: Very High CARDIAC RISK RATIO 2.2(L) 3.3 - 4.4 C [facility] Blood 09/30/2019 8:17 AM EST 09/30/2019 8:21 AM EST Shawn Stanton DO LAB BLOOD BKR ORDERABLES Fin al Result Performing Organization Address [facility] Co de Phone Number [address] [address] * (ABNORMAL) Iron and iron binding capacity (09/30/2019 8:17 AM EST) IRON 20(L) 30 - 160 ug/dL [facility] IRON BINDING CAPACITY 417 228 - 428 ug/dL [facility] TRANSFERRIN SATURAT. 5(L) 15 - 50 % [facility] Blood 09/30/2019 8:17 AM EST 09/30/2019 8:21 AM EST Shawn Stanton DO LAB BLOOD BKR ORDERABLES Fin al Result Performing Organization Address City/[facility]/ZIP Co de Phone Number [address] [address] * (ABNORMAL) 25-OH vitamin D (09/30/2019 8:17 AM EST) 25 [place] VIT D (TOTAL) 24(L) 30 - 60 ng/mL [facility] Blood 09/30/2019 8:17 AM EST 09/30/2019 8:21 AM EST Shawn Stanton LAB BLOOD BKR ORDERABLES Fin al Result Performing Organization Address City/[facility]/ZIP Co de Phone Number [address] [address] * TSH (09/30/2019 8:17 AM EST) TSH 3.26 0.27 - 4.20 uIU/mL [facility] Blood 09/30/2019 8:17 AM EST 09/30/2019 8:21 AM EST Shawn Stanton LAB BLOOD BKR ORDERABLES Fin al Result Performing Organization Address [facility] de Phone Number [address] [address] * LH (09/30/2019 8:17 AM EST) LH 1.6 IU/L [facility] Comment: Interpretation: FEMALE: Follicular: 2.4 - 12.6 mIU/ml Ovulate: 4.0 - 99.6 mIU/ml Luteal: 1.0 - 11.4 mIU/ml Postmenopausal: 7.7 - 58.5 mIU/ml Blood 09/30/2019 8:17 AM EST 09/30/2019 8:21 AM EST Shawn Stanton LAB BLOOD BKR ORDERABLES Fin al Result Performing Organization Address [facility] Co de Phone Number [address] [address] * FSH (09/30/2019 8:17 AM EST) FSH 3.9 IU/L [facility] Comment: FEMALE: Follicular: 3.5 - 12.5 mIU/ml. Ovulate: 4.7 - 21.5 mIU/ml. Luteal: 1.7 - 7.7 mIU/ml. Postmenopausal: 25.8 - 134.8 mIU/ml. Blood 09/30/2019 8:17 AM EST 09/30/2019 8:21 AM EST Shawn Stanton DO LAB BLOOD BKR ORDERABLES Fin al Result Performing Organization Address City/[facility]/ZIP Co de Phone Number [address] [address] * ESTROGENS, E1+E2, FRACTIONATED (09/30/2019 8:17 AM EST) ESTRONE 49 pg/mL [facility] Comment: (NOTE) REFERENCE VALUE Premenopausal :17-200 Postmenopausal : 7-40 ADDITIONAL INFORMATION This test was developed and its performance characteristics determined by [facility] in a manner consistent with CLIA requirements. This test has not been cleared or approved by the U.S. Food and Drug Administration. ESTRADIOL, S 40 pg/mL [facility] Comment: (NOTE) REFERENCE VALUE Premenopausal: 15-350 (E2 levels vary widely through the menstrual cycle.) Postmenopausal: <10 ADDITIONAL INFORMATION This test was developed and its performance characteristics determined by [facility] in a manner consistent with CLIA requirements. This test has not been cleared or approved by the U.S. Food and Drug Administration. Blood 09/30/2019 8:17 AM EST 09/30/2019 8:21 AM EST Shawn Stanton DO LAB BLOOD ORDERABLES Final R esult Performing Organization Address [facility]/ZIP Co de Phone Number [facility] [address] 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 It is not the complete legal health record.[facility]
== END 2025-09-08 16:07 | disposition home or self-care (01) ==
LOC: HO.HMCSH 15:18
PROVIDERS: PCP Internal Medicine; Visit Provider Internal Medicine
DX: G89.4 Chronic pain syndrome (principal); Z23 Encounter for immunization

== ENCOUNTER → 2025-09-08 15:18 | Outpatient (BNVA) | payer OTHER, SELFPAY | PROVIDERS: PCP Internal Medicine; Visit Provider Internal Medicine | DX: G89.4 Chronic pain syndrome (principal); E03.9 Hypothyroidism, unspecified; Z28.04 Immunization not carried out because of patient allergy to vaccine or component; Z79.891 Long term (current) use of opiate analgesic | CPT/HCPCS: 90471; 96127 ==

== ENCOUNTER 2025-09-15 07:50 | Outpatient (REF) | payer OTHER, SELFPAY ==
--- NOTE | ~2025-09-15 | MM_ITS ---
EXAMINATION(S): 1. MM DIAGNOSTIC DIGITAL BREAST TOMOSYNTHESIS, RIGHT 2. TARGETED ULTRASOUND OF THE RIGHT BREAST CLINICAL INFORMATION: Callback from baseline screening for right breast asymmetry COMPARISON: August 28, 2025 TECHNIQUE: Digital breast tomosynthesis is performed in full field ML 90 degrees along with computer-aided detection (CAD). Synthesized 2D images are generated from the tomosynthesis. Spot compression tomosynthesis were obtained. FINDINGS: BREAST COMPOSITION: There are scattered areas of fibroglandular density. RIGHT BREAST: Focal asymmetry measuring approximately 1.1 cm in size persists on today's images in the upper outer quadrant at approximately 10.5 cm from the nipple. It contains at least two calcifications. Targeted ultrasound of the right breast was performed at the location of the mammographic finding. The survey shows an irregular hypoechoic solid mass with anti-parallel orientation that measures at least 0.5 x 0.4 x 0.4 cm at 10 o'clock position 14 cm from the nipple. Findings correlates with the mammographic finding. No internal vascularity demonstrated with color Doppler evaluation. MM/MM tomosynthesis added views R IMPRESSION: RIGHT BREAST: At least 0.5 cm solid mass at 10 o'clock position 14 cm from the nipple. Suspicious findings. An ultrasound-guided needle core biopsy is recommended. ASSESSMENT: BI-RADS: Category 4: Suspicious RECOMMENDATION: Biopsy recommended Findings and recommendations discussed with the patient at completion of the studies. This patient's information was entered into a reminder system with a target due date for their next mammogram. Electronically signed by: Daniel Nichols MD 09/15/2025 08:59 AM [facility]
--- OUTSIDE RECORDS SUMMARY | 2025-09-15 07:53 | XMS_ITS | Encounter Summary ---
Author Organization [facility] Address [address] [address] Phone Care Team Providers Care Mirror Maker Name Role Phone Shawn Stanton DO Primary Care Provider [phone] Encounter Details Date Type Department Care Team (Latest Contact Info) Description 12/20/2021 Transcribe Orders Virtual Department [address] [place] [address] Shawn Stanton DO [address] [place] [address] COVID (Primary Dx); Mild persistent asthma without [...] complication documented in this encounter Care Teams Mirror Maker Relationship Specialty Start Date End Date Shawn Stanton DO [address] [place] [address] PCP - General 10/19/17 documented as of this encounter Additional Source Comments The information contained in this document represents components of the legal health record. It is not the complete legal health record.[facility]
--- OUTSIDE RECORDS SUMMARY | 2025-09-15 07:53 | XMS_ITS | Encounter Summary ---
Author Organization [facility] Address [address] [place] [address] Phone Care Team Providers Care Multiple Needle Stitcher Name Role Phone Shawn Stanton Primary Care Provider Encounter Details Date Type Department Care Team (Late st Contact Info) Description 08/22/2025 Orders Only [facility] [address] [place] [address] Guillermo Manning MD [address] [place] [address] [address] [place], [place] [phone] Chronic pain syndrome (Primary Dx); Localized, primary [...] Color Yellow Yellow 08/22/2025 3:37 PM EST [facility] Clarity Clear Clear 08/22/2025 3:37 PM [facility] Glucose Negative Negative 08/22/2025 3:37 PM [facility] Bilirubin Urine Negative Negative 3:37 PM [facility] Ketone Urine Negative Negative 08/22/2025 3:37 PM [facility] Specific [place] 1.020 1.001 - 1.035 08/22/2025 3:37 PM [facility] Blood Negative Negative 08/22/2025 3:37 PM [facility] pH 6.5 5.0 - 8.0 08/22/2025 3:37 PM [facility] Protein Negative Negative 08/22/2025 3:37 PM [facility] Nitrites Negative Negative 08/22/2025 3:37 PM [facility] Leukocyte Esterase Negative Negative 08/22/2025 3:37 PM [facility] Urobilinogen Negative Negative 08/22/2025 3:37 PM [facility] Urine (Urine, Voided) Non-Blood Collection / Unknown 08/22/2025 8:26 AM EST 08/22/2025 8:26 AM EST us Guillermo Manning MD LAB URINE ORDERABLES Final Result Performing Organization Address City/[facility]/ZIP Co de Phone Number [address] [address] * Thyroid Stimulating Hormone (TSH) (08/22/2025 8:26 AM EST) TSH 1.02 0.40 - 5.00 uIU/mL 08/22/2025 2:51 PM [facility] Blood (Blood) Venipuncture / Unknown 08/22/2025 8:26 AM EST 08/22/2025 8:26 AM EST us Guillermo Manning MD LAB BLOOD BKR ORDERA BLES Final Result [address] [address] * (ABNORMAL) Hepatic Panel (LFTs) (08/22/2025 8:26 AM EST) AST 32 <33 U/L 08/22/2025 2:51 PM [facility] ALT 25 <34 U/L 08/22/2025 2:51 PM [facility] Alkaline Phosphatase 164(H) 40 - 130 U/L 08/22/2025 2:51 PM [facility] Bilirubin, Total 0.4 0.0 - 1.2 mg/dL 08/22/2025 2:51 PM [facility] Bilirubin, Direct 0.1 0.0 - 0.3 mg/dL 08/22/2025 2:51 PM [facility] Total Protein 8.2 6.4 - 8.3 g/dL 08/22/2025 2:51 PM [facility] Albumin 4.7 3.5 - 5.2 g/dL 08/22/2025 2:51 PM [facility] Globulin 3.5 1.9 - 4.1 g/dL 08/22/2025 2:51 PM [facility] Blood (Blood) Venipuncture / Unknown 08/22/2025 8:26 AM EST 08/22/2025 8:26 AM EST us Guillermo Manning MD LAB BLOOD BKR ORDERA BLES Final Result Performing Organization Address City/State/[facility] Co de Phone Number [address] [address] * (ABNORMAL) Lipid Panel (08/22/2025 8:26 AM EST) Cholesterol 235(H) <200 mg/dL 08/22/2025 2:51 PM [facility] HDL 110 >=40 mg/dL 08/22/2025 2:51 PM [facility] Calculated LDL 110 <130 mg/dL 08/22/2025 2:51 PM [facility] Comment:LDL is calculated us ing the Pradhan-NIH equation (TIFFANY Cardiol. 2019February 13;5(5):540-548). Non-HDL Cholesterol 125 mg/dL 08/22/2025 2:51 PM [facility] Comment:Guidelines suggest a non-HDL cholesterol goal 30 mg/dL higher than the patient-specific LDL cholesterol goal. Cardiac Risk Ratio 2.1 0.0 - 5.0 2024 2:51 PM [facility] Triglycerides 89 <=150 mg/dL 08/22/2025 2:51 PM [facility] Blood (Blood) Venipuncture / Unknown 08/22/2025 8:26 AM EST 08/22/2025 8:26 AM EST us Guillermo Manning MD LAB BLOOD BKR ORDERA BLES Final Result Performing Organization Address City/State/[facility] Co de Phone Number [facility] [address] [place] [address] * (ABNORMAL) CBC (08/22/2025 8:26 AM EST) WBC 6.89 4.00 - 11.00 K/uL 08/22/2025 1:44 PM [facility] RBC 4.40 4.00 - 5.20 M/uL 08/22/2025 1:44 PM [facility] Hemoglobin 14.9 12.0 - 16.0 g/dL 08/22/2025 1:44 PM [facility] Hematocrit 43.9 36.0 - 46.0 % 08/22/2025 1:44 PM [facility] MCV 99.8 80.0 - 100.0 fL 08/22/2025 1:44 PM [facility] MCH 33.9(H) 27.0 - 31.0 pg 08/22/2025 1:44 PM [facility] MCHC 33.9 32.0 - 36.0 g/dL 08/22/2025 1:44 PM [facility] PLT 200 150 - 450 K/uL 08/22/2025 1:44 PM [facility] MPV 11.0 8.4 - 12.0 fL 08/22/2025 1:44 PM [facility] RDW-CV 11.7 11.5 - 14.5 % 08/22/2025 1:44 PM [facility] Absolute NRBC 0.00 <=0.00 K cells/uL 08/22/2025 1:44 PM [facility] NRBC 0.0 <=0.0 /100 WBCs 08/22/2025 1:44 PM [facility] Blood (Blood) Venipuncture / Unknown 08/22/2025 8:26 AM EST 08/22/2025 8:26 AM EST us Guillermo Manning MD LAB BLOOD BKR ORDERA BLES Final Result [address] [address] * (ABNORMAL) Basic Metabolic Panel (BMP) (08/22/2025 8:26 AM EST) Sodium 135(L) 136 - 145 mmol/L 08/22/2025 2:51 PM [facility] Potassium 4.3 3.4 - 5.1 mmol/L 08/22/2025 2:51 PM [facility] Comment:NOTE: Specimen hemol yzed. Results may be falsely increased. Chloride 97(L) 98 - 107 mmol/L 08/22/2025 2:51 PM [facility] CO2 26 20 - 31 mmol/L 08/22/2025 2:51 PM [facility] Anion Gap 12 3 - 17 mmol/L 08/22/2025 2:51 PM [facility] BUN 11 6 - 23 mg/dL 08/22/2025 2:51 PM [facility] Creatinine 0.40(L) 0.50 - 1.00 mg/dL 08/22/2025 2:51 PM [facility] eGFR 118 >59 mL/min/1.7 3m2 08/22/2025 2:51 PM [facility] Comment:Estimated glomerular filtration rate calculated using the CKD-EPI refit equation. Glucose 96 70 - 99 mg/dL 08/22/2025 2:51 PM [facility] Calcium 10.2 8.5 - 10.5 mg/dL 08/22/2025 2:51 PM EST [facility] Blood (Blood) Venipuncture / Unknown 08/22/2025 8:26 AM EST 08/22/2025 8:26 AM EST us Guillermo Manning MD LAB BLOOD BKR ORDERA BLES Final Result Performing Organization Address City/State/[facility] Co de Phone Number [facility] [address] [place] [address] documented in this encounter Visit Diagnoses Diagnosis Chronic pain syndrome- Primary Localized, primary osteoarthritis of ankle or foot, unspecified laterality documented in this encounter Care Teams Multiple Needle Stitcher Relationship Specialty Start Date End Date Shawn Stanton DO [address] [place] [phone] PCP - General 10/19/17 documented as of this encounter Additional Source Comments The information contained in this document represents components of the legal health record. It is not the complete legal health record.[facility]
--- OUTSIDE RECORDS SUMMARY | 2025-09-15 07:53 | XMS_ITS | Clinical Summary ---
Author Organization [facility] Address [address] [phone] Phone Care Team Providers Care Corporate Account Executive Name Role Phone Shawn Stanton DO Primary [...] Department Care Team Description 08/22/2025 Orders Only [facility] [place]le[place] [address] [place] [address] [place] [address] Guillermo Manning MD Chronic pain syndrome (Primary Dx); Localized, primary osteoarthritis of ankle or foot, unspecified laterality 08/22/2025 Orders Only [facility] Phleb [place] [address] [place] [address] [place] [address] Guillermo Manning MD Localized, primary osteoarthritis of [...] Color Yellow Yellow 08/22/2025 3:37 PM EST [facility] Clarity Clear Clear 08/22/2025 3:37 PM EST [facility] Glucose Negative Negative 08/22/2025 3:37 PM EST [facility] Bilirubin Urine Negative Negative 3:37 PM [facility] Ketone Urine Negative Negative 08/22/2025 3:37 PM [facility] Specific [place] 1.020 1.001 - 1.035 08/22/2025 3:37 PM [facility] Blood Negative Negative 08/22/2025 3:37 PM [facility] pH 6.5 5.0 - 8.0 08/22/2025 3:37 PM [facility] Protein Negative Negative 08/22/2025 3:37 PM [facility] Nitrites Negative Negative 08/22/2025 3:37 PM [facility] Leukocyte Esterase Negative Negative 08/22/2025 3:37 PM [facility] Urobilinogen Negative Negative 08/22/2025 3:37 PM [facility] Urine (Urine, Voided) Non-Blood Collection / Unknown 08/22/2025 8:26 AM EST 08/22/2025 8:26 AM EST us Guillermo Manning MD LAB URINE ORDERABLES Final Result [facility] [address] [place] [address] * (ABNORMAL) Hepatic Panel (LFTs) (08/22/2025 8:26 AM EST) AST 32 <33 U/L 08/22/2025 2:51 PM [facility] ALT 25 <34 U/L 08/22/2025 2:51 PM [facility] Alkaline Phosphatase 164(H) 40 - 130 U/L 08/22/2025 2:51 PM [facility] Bilirubin, Total 0.4 0.0 - 1.2 mg/dL 08/22/2025 2:51 PM [facility] Bilirubin, Direct 0.1 0.0 - 0.3 mg/dL 08/22/2025 2:51 PM [facility] Total Protein 8.2 6.4 - 8.3 g/dL 08/22/2025 2:51 PM [facility] Albumin 4.7 3.5 - 5.2 g/dL 08/22/2025 2:51 PM [facility] Globulin 3.5 1.9 - 4.1 g/dL 08/22/2025 2:51 PM [facility] Blood (Blood) Venipuncture / Unknown 08/22/2025 8:26 AM EST 08/22/2025 8:26 AM EST us Guillermo Manning MD LAB BLOOD BKR ORDERA BLES Final Result [facility] [address] [place] [address] * (ABNORMAL) CBC (08/22/2025 8:26 AM EST) WBC 6.89 4.00 - 11.00 K/uL 08/22/2025 1:44 PM [facility] RBC 4.40 4.00 - 5.20 M/uL 08/22/2025 1:44 PM [facility] Hemoglobin 14.9 12.0 - 16.0 g/dL 08/22/2025 1:44 PM [facility] Hematocrit 43.9 36.0 - 46.0 % 08/22/2025 1:44 PM [facility] MCV 99.8 80.0 - 100.0 fL 08/22/2025 1:44 PM [facility] MCH 33.9(H) 27.0 - 31.0 pg 08/22/2025 1:44 PM [facility] MCHC 33.9 32.0 - 36.0 g/dL 08/22/2025 1:44 PM [facility] PLT 200 150 - 450 K/uL 08/22/2025 1:44 PM [facility] MPV 11.0 8.4 - 12.0 fL 08/22/2025 1:44 PM [facility] RDW-CV 11.7 11.5 - 14.5 % 08/22/2025 1:44 PM [facility] Absolute NRBC 0.00 <=0.00 K cells/uL 08/22/2025 1:44 PM [facility] NRBC 0.0 <=0.0 /100 WBCs 08/22/2025 1:44 PM EST [facility] Blood (Blood) Venipuncture / Unknown 08/22/2025 8:26 AM EST 08/22/2025 8:26 AM EST us Guillermo Manning MD LAB BLOOD BKR ORDERA BLES Final Result Performing Organization Address City/[facility]/ZIP Co de Phone Number [address] [address] * Thyroid Stimulating Hormone (TSH) (08/22/2025 8:26 AM EST) TSH 1.02 0.40 - 5.00 uIU/mL 08/22/2025 2:51 PM [facility] Blood (Blood) Venipuncture / Unknown 08/22/2025 8:26 AM EST 08/22/2025 8:26 AM EST us Guillermo Manning MD LAB BLOOD BKR ORDERA BLES Final Result Performing Organization Address [facility] Co de Phone Number [address] [address] * (ABNORMAL) Lipid Panel (08/22/2025 8:26 AM EST) Cholesterol 235(H) <200 mg/dL 08/22/2025 2:51 PM [facility] HDL 110 >=40 mg/dL 08/22/2025 2:51 PM [facility] Calculated LDL 110 <130 mg/dL 08/22/2025 2:51 PM [facility] Comment:LDL is calculated us ing the Pradhan-NIH equation (TIFFANY Cardiol. 2019February 13;5(5):540-548). Non-HDL Cholesterol 125 mg/dL 08/22/2025 2:51 PM [facility] Comment:Guidelines suggest a non-HDL cholesterol goal 30 mg/dL higher than the patient-specific LDL cholesterol goal. Cardiac Risk Ratio 2.1 0.0 - 5.0 2024 2:51 PM [facility] Triglycerides 89 <=150 mg/dL 08/22/2025 2:51 PM [facility] Blood (Blood) Venipuncture / Unknown 08/22/2025 8:26 AM EST 08/22/2025 8:26 AM EST Guillermo Manning MD LAB BLOOD BKR ORDERA BLES Final Result [address] [address] * (ABNORMAL) Basic Metabolic Panel (BMP) (08/22/2025 8:26 AM EST) Sodium 135(L) 136 - 145 mmol/L 08/22/2025 2:51 PM [facility] Potassium 4.3 3.4 - 5.1 mmol/L 08/22/2025 2:51 PM [facility] Comment:NOTE: Specimen hemol yzed. Results may be falsely increased. Chloride 97(L) 98 - 107 mmol/L 08/22/2025 2:51 PM [facility] CO2 26 20 - 31 mmol/L 08/22/2025 2:51 PM [facility] Anion Gap 12 3 - 17 mmol/L 08/22/2025 2:51 PM [facility] BUN 11 6 - 23 mg/dL 08/22/2025 2:51 PM [facility] Creatinine 0.40(L) 0.50 - 1.00 mg/dL 08/22/2025 2:51 PM [facility] eGFR 118 >59 mL/min/1.7 3m2 08/22/2025 2:51 PM [facility] Comment:Estimated glomerular filtration rate calculated using the CKD-EPI refit equation. Glucose 96 70 - 99 mg/dL 08/22/2025 2:51 PM [facility] Calcium 10.2 8.5 - 10.5 mg/dL 08/22/2025 2:51 PM [facility] Blood (Blood) Venipuncture / Unknown 08/22/2025 8:26 AM EST 08/22/2025 8:26 AM EST Guillermo Manning MD LAB BLOOD BKR ORDERA BLES Final Result [address] [address] from Last 3 Months Insurance O O O O O O O O O Care Teams Corporate Account Executive Relationship Specialty Start Date End Date Shawn Stanton DO [address] [place] [phone] PCP - General 10/19/17 Additional Source Comments The information contained in this document represents components of the legal health record. It is not the complete legal health record.[facility]
--- OUTSIDE RECORDS SUMMARY | 2025-09-15 07:53 | XMS_ITS | Encounter Summary ---
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); [...] EST) SODIUM 135 133 - 146 mmol/L [facility] POTASSIUM 4.2 3.3 - 5.1 mmol/L [facility] CHLORIDE 98 96 - 108 mmol/L [facility] CO2 26 21 - 35 mmol/L [facility] BUN 13 6 - 19 mg/dL [facility] CREATININE <0.50(L) 0.5 - 1.5 mg/dL [facility] GLUCOSE 97 70 - 99 mg/dL [facility] ALBUMIN 4.1 3.9 - 4.8 g/dL [facility] TOTAL PROTEIN 7.2 6.5 - 8.0 g/dL [facility] CALCIUM 8.8 8.4 - 10.3 mg/dL [facility] ALKALINE PHOSPHATASE 107 39 - 117 U/L [facility] TOTAL BILIRUBIN 0.2 0.0 - 1.2 mg/dL [facility] AST 29 0 - 37 U/L [facility] ALT 25 0 - 40 U/L [facility] GLOBULIN 3.1 1 - 4.8 g/dL [facility] EGFR Not Done >59 mL/min/1.7 3m2 [facility] ANION GAP 15 10 - 20 mmol/L [facility] Blood 09/30/2019 8:17 AM EST 09/30/2019 8:21 AM EST us Shawn Stanton DO LAB BLOOD BKR ORDERABLES Fin al Result Performing Organization Address City/State/[facility] Co de Phone Number [address] [address] * (ABNORMAL) CBC and differential (09/30/2019 8:17 AM EST) WBC 4.09 3.40 - 11.20 K/uL [facility] RBC 3.74(L) 3.80 - 4.80 M/uL [facility] HGB 9.4(L) 12.0 - 15.0 g/dL [facility] HCT 31.3(L) 36.0 - 46.0 % [facility] PLT 260 130 - 400 K/uL [facility] MCV 83.7 79.0 - 98.0 fL [facility] MCH 25.1(L) 27.0 - 34.8 pg [facility] MCHC 30.0(L) 31.5 - 36.0 g/dL [facility] RDW 15.2(H) 10.8 - 14.6 % [facility] MPV 10.0 9.4 - 12.4 fl [facility] NRBC 0.00 0.00 /100 WBCs [facility] ABSOLUTE NRBC 0.00 0.00 K/uL [facility] DIFF METHOD Auto [facility] NEUTS 52.0 45.30 - 77.70 % [facility] LYMPHS 32.8 12.30 - 39.70 % [facility] MONOS 12.0 4.10 - 12.80 % [facility] EOS 2.0 0 - 7.2 % [facility] BASOS 1.0 0 - 2.80 % [facility] Granulocytes, immature (%) 0.2 0.0 - 0.9 % [facility] ABSOLUTE NEUTS 2.13 1.40 - 7.70 K/uL [facility] ABSOLUTE LYMPHS 1.34 0.60 - 3.20 K/uL [facility] ABSOLUTE MONOS 0.49 0.11 - 0.59 K/uL [facility] ABSOLUTE EOS 0.08 0.01 - 0.50 K/uL [facility] ABSOLUTE BASOS 0.04 0.00 - 0.08 K/uL [facility] Granulocytes, immature 0.01 0.00 - 0.05 K/uL [facility] Blood 09/30/2019 8:17 AM EST 09/30/2019 8:21 AM EST [facility]LO[facility] BKR ORDERABLES Fin al Result Performing Organization Address [facility] Co de Phone Number [address] [address] * (ABNORMAL) Ferritin (09/30/2019 8:17 AM EST) FERRITIN 9(L) 13 - 150 ug/L [facility] Blood 09/30/2019 8:17 AM EST 09/30/2019 8:21 AM EST Shawn Romy DO LAB BLOOD BKR ORDERABLES Fin al Result Performing Organization Address [facility] Co de Phone Number [address] [address] * (ABNORMAL) Lipid panel (09/30/2019 8:17 AM EST) HDL 94 mg/dL [facility] Comment: Interpretation <40 mg/dL: Low HDL cholesterol (major risk factor for CHD) Greater than or equal to 60 mg/dL: High HDL cholesterol ( negative risk factor for CHD) HDL - cholesterol is affected by a number of factors, e.g. smoking, excerise, hormones, sex and age. CHOLESTEROL 209 0 - 240 mg/dL [facility] TRIGLYCERIDES 71 30 - 160 mg/dL [facility] LDL 101 50 - 129 mg/dL [facility] Comment: LDL levels in terms of risk for coronary heart disease: <100 mg/dL: Optimal 100-129 mg/dL: Near or above optimal 130-159 mg/dL: Borderline high 160-189 mg/dL: High >190 mg/dL: Very High CARDIAC RISK RATIO 2.2(L) 3.3 - 4.4 C [facility] Blood 09/30/2019 8:17 AM EST 09/30/2019 8:21 AM EST Shawn Stanton DO LAB BLOOD BKR ORDERABLES Fin al Result Performing Organization Address [facility] Co de Phone Number [address] [address] * (ABNORMAL) Iron and iron binding capacity (09/30/2019 8:17 AM EST) IRON 20(L) 30 - 160 ug/dL [facility] IRON BINDING CAPACITY 417 228 - 428 ug/dL [facility] TRANSFERRIN SATURAT. 5(L) 15 - 50 % [facility] Blood 09/30/2019 8:17 AM EST 09/30/2019 8:21 AM EST Shawn Stanton DO LAB BLOOD BKR ORDERABLES Fin al Result Performing Organization Address City/[facility]/ZIP Co de Phone Number [address] [address] * (ABNORMAL) 25-[place] vitamin D (09/30/2019 8:17 AM EST) 25 [place] VIT D (TOTAL) 24(L) 30 - 60 ng/mL [facility] Blood 09/30/2019 8:17 AM EST 09/30/2019 8:21 AM EST Shawn Stanton LAB BLOOD BKR ORDERABLES Fin al Result Performing Organization Address City/[facility]/ZIP Co de Phone Number [address] [address] * TSH (09/30/2019 8:17 AM EST) TSH 3.26 0.27 - 4.20 uIU/mL [facility] Blood 09/30/2019 8:17 AM EST 09/30/2019 8:21 AM EST Shawn Stanton LAB BLOOD BKR ORDERABLES Fin al Result Performing Organization Address [facility] de Phone Number [address] [address] * LH (09/30/2019 8:17 AM EST) LH 1.6 IU/L [facility] Comment: Interpretation: FEMALE: Follicular: 2.4 - 12.6 mIU/ml Ovulate: 4.0 - 99.6 mIU/ml Luteal: 1.0 - 11.4 mIU/ml Postmenopausal: 7.7 - 58.5 mIU/ml Blood 09/30/2019 8:17 AM EST 09/30/2019 8:21 AM EST Shawn Stanton LAB BLOOD BKR ORDERABLES Fin al Result Performing Organization Address [facility] Co de Phone Number [address] [address] * FSH (09/30/2019 8:17 AM EST) FSH 3.9 IU/L [facility] Comment: FEMALE: Follicular: 3.5 - 12.5 mIU/ml. Ovulate: 4.7 - 21.5 mIU/ml. Luteal: 1.7 - 7.7 mIU/ml. Postmenopausal: 25.8 - 134.8 mIU/ml. Blood 09/30/2019 8:17 AM EST 09/30/2019 8:21 AM EST Shawn Stanton DO LAB BLOOD BKR ORDERABLES Fin al Result Performing Organization Address City/[facility]/ZIP Co de Phone Number [address] [address] * ESTROGENS, E1+E2, FRACTIONATED (09/30/2019 8:17 AM EST) ESTRONE 49 pg/mL [facility] Comment: (NOTE) REFERENCE VALUE Premenopausal :17-200 Postmenopausal : 7-40 ADDITIONAL INFORMATION This test was developed and its performance characteristics determined by [facility] in a manner consistent with CLIA requirements. This test has not been cleared or approved by the U.S. Food and Drug Administration. ESTRADIOL, S 40 pg/mL [facility] Comment: (NOTE) REFERENCE VALUE Premenopausal: 15-350 (E2 levels vary widely through the menstrual cycle.) Postmenopausal: <10 ADDITIONAL INFORMATION This test was developed and its performance characteristics determined by [facility] in a manner consistent with CLIA requirements. This test has not been cleared or approved by the U.S. Food and Drug Administration. Blood 09/30/2019 8:17 AM EST 09/30/2019 8:21 AM EST Shawn Stanton DO LAB BLOOD ORDERABLES Final R esult Performing Organization Address [facility]/ZIP Co de Phone Number [facility] [address] [place] [address] documented in this encounter Visit Diagnoses Diagnosis Chronic pain due to trauma- Primary Mild persistent asthma without complication Iron deficiency anemia secondary to blood loss (chronic) documented in this encounter Care Teams Operations Recruiter Relationship Specialty Start Date End Date Shawn Stanton DO [address] [place] [address] PCP - General 10/19/17 documented as of this encounter Additional Source Comments The information contained in this document represents components of the legal health record. It is not the complete legal health record.[facility]
--- OUTSIDE RECORDS SUMMARY | 2025-09-15 07:53 | XMS_ITS | Encounter Summary ---
Author Organization [facility] Address [address] [facility] [address] [place] [address] Phone Care Team Providers Care Telehealth Nurse Name Role Phone Shawn Stanton Primary Care Provider Encounter Details Date Type Department Care Team (Late st Contact Info) Description 08/22/2025 Orders Only [address] [place] [address] Guillermo Manning MD [address] [place] [address] [address] [place], [place] [phone] Localized, primary osteoarthritis of ankle or foot, [...] syndrome documented in this encounter Care Teams Telehealth Nurse Relationship Specialty Start Date End Date Shawn Stanton DO [address] [place] [phone] PCP - General 10/19/17 documented as of this encounter Additional Source Comments The information contained in this document represents components of the legal health record. It is not the complete legal health record.[facility]
--- OUTSIDE RECORDS SUMMARY | 2025-09-15 07:53 | XMS_ITS | Encounter Summary ---
Author Organization [facility] Address [address] [facility] [address] [place] [id number] Phone Care Team Providers Care Stretch Machine Operator Name Role Phone Shawn Stanton DO Primary Care Provider Encounter Details Date Type Department Care Team (Latest Contact Info) Description 04/24/2018 Transcribe Orders [facility]le[facility] [address] [place] [address] Shawn Stanton DO [address] [place] [address] Iron deficiency anemia due to chronic blood [...] EDT) SODIUM 136 133 - 146 mmol/L [facility] POTASSIUM 3.9 3.3 - 5.1 mmol/L [facility] CHLORIDE 97 96 - 108 mmol/L [facility] CO2 27 21 - 35 mmol/L [facility] BUN 12 6 - 19 mg/dL [facility] CREATININE 0.50 0.5 - 1.5 mg/dL [facility] GLUCOSE 109(H) 70 - 99 mg/dL [facility] ALBUMIN 4.2 3.9 - 4.8 g/dL [facility] TOTAL PROTEIN 7.3 6.5 - 8.0 g/dL [facility] CALCIUM 9.5 8.4 - 10.3 mg/dL [facility] ALKALINE PHOSPHATASE 118(H) 39 - 117 U/L [facility] TOTAL BILIRUBIN 0.3 0.0 - 1.2 mg/dL [facility] AST 27 0 - 37 U/L [facility] ALT 27 0 - 40 U/L [facility] GLOBULIN 3.1 1 - 4.8 g/dL [facility] EGFR 115 >59 mL/min/1.7 3m2 [facility] Comment:If patient is black, multiply result by 1.159. Estimated glomerular filtration rate calculated using the CKD-EPI equation. ANION GAP 16 10 - 20 mmol/L [facility] Blood 04/24/2018 1:14 PM EDT 04/24/2018 1:18 PM EDT us Shawn Stanton DO LAB BLOOD BKR ORDERABLES Fin al Result Performing Organization Address [facility] Co de Phone Number [address] [address] * Iron and iron binding capacity (04/24/2018 1:14 PM EDT) IRON 120 30 - 160 ug/dL [facility] IRON BINDING CAPACITY 339 228 - 428 ug/dL [facility] TRANSFERRIN SATURAT. 35 15 - 50 % [facility] Blood 04/24/2018 1:14 PM EDT 04/24/2018 1:18 PM EDT Shawn Stanton DO LAB BLOOD BKR ORDERABLES Fin al Result [address] [address] * Ferritin (04/24/2018 1:14 PM EDT) FERRITIN 25 13 - 150 ug/L [facility] Blood 04/24/2018 1:14 PM EDT 04/24/2018 1:18 PM EDT us Shawn Stanton DO LAB BLOOD BKR ORDERABLES Fin al Result [facility] [address] [place] [address] * (ABNORMAL) CBC and differential (04/24/2018 1:14 PM EDT) WBC 5.11 3.40 - 11.20 K/uL [facility] RBC 3.91 3.80 - 4.80 M/uL [facility] HGB 11.7(L) 12.0 - 15.0 g/dL [facility] HCT 35.0(L) 36.0 - 46.0 % [facility] PLT 199 130 - 400 K/uL [facility] MCV 89.5 79.0 - 98.0 fL [facility] MCH 29.9 27.0 - 34.8 pg [facility] MCHC 33.4 31.5 - 36.0 g/dL [facility] RDW 13.7 10.8 - 14.6 % [facility] MPV 10.7 9.4 - 12.4 fl [facility] NRBC 0.00 /100 WBCs [facility] ABSOLUTE NRBC 0.00 K/uL [facility] DIFF METHOD Auto [facility] NEUTS 68.0 45.30 - 77.70 % [facility] LYMPHS 23.5 12.30 - 39.70 % [facility] MONOS 6.5 4.10 - 12.80 % [facility] EOS 1.2 0 - 7.2 % [facility] BASOS 0.6 0 - 2.80 % [facility] Granulocytes, immature (%) 0.2 0.0 - 0.9 % [facility] ABSOLUTE NEUTS 3.48 1.40 - 7.70 K/uL [facility] ABSOLUTE LYMPHS 1.20 0.60 - 3.20 K/uL [facility] ABSOLUTE MONOS 0.33 0.11 - 0.59 K/uL [facility] ABSOLUTE EOS 0.06 0.01 - 0.50 K/uL [facility] ABSOLUTE BASOS 0.03 0.00 - 0.08 K/uL [facility] Granulocytes, immature 0.01 0.00 - 0.05 K/uL [facility] Blood 04/24/2018 1:14 PM EDT 04/24/2018 1:18 PM EDT us Shawn Stanton DO LAB BLOOD BKR ORDERABLES Fin al Result [facility] [address] [place] [address] documented in this encounter Visit Diagnoses Diagnosis Iron deficiency anemia due to chronic blood loss- Primary Iron deficiency anemia secondary to blood loss (chronic) documented in this encounter Care Teams Stretch Machine Operator Relationship Specialty Start Date End Date Shawn Stanton, [address] [place] [id number] PCP - General 10/19/17 documented as of this encounter Additional Source Comments The information contained in this document represents components of the legal health record. It is not the complete legal health record.[facility]
== END 2025-09-15 07:51 | disposition home or self-care (01) ==
LOC: HO.MAMMO 07:50
PROVIDERS: PCP Internal Medicine; Visit Provider Internal Medicine
DX: N64.89 Other specified disorders of breast (principal)
CPT/HCPCS: 76642; 77061; 77065

== ENCOUNTER → 2025-09-15 08:00 | Outpatient (BNV) | payer OTHER, SELFPAY | PROVIDERS: PCP Internal Medicine; Visit Provider Radiology Body Imaging | DX: N63.11 Unspecified lump in the right breast, upper outer quadrant (principal) | CPT/HCPCS: 76642; 77061; 77065 ==

== ENCOUNTER 2025-09-23 08:15 | Outpatient (AMB) | payer OTHER, SELFPAY ==
--- NOTE | 2025-09-23 08:22 | MHC.OFFVIS ---
Vital Signs 09/23/25 08:24 Height 5 ft 5 in Weight 170 lb BMI 28.3 BP 138/87 Blood Pressure Location Rt brachial Position Standing Pulse 61 Intake Visit Reasons: US BX (R) brst upper outer quad mass Intake Note: Patient is seen in office for ultrasound biopsy CONSULT, right breast for upper outer quadrant mass. Pt c/o: denies nipple discharge, denies no change in size or shape of breast, denies other breast symptoms. Bx sched:09/25/25 @ 11am Doctor Of Dental Medicine Required: No Accompanied by: Family/Other Allergies codeine Allergy (Unknown, Verified 09/23/25 08:31) rash when she was younger gabapentin Allergy (Unknown, Verified 09/23/25 08:31) Rash Penicillins Allergy (Unknown, Verified 09/23/25 08:31) Rash Sulfa (Sulfonamide Antibiotics) Adverse Reaction (Unknown, Verified 09/23/25 08:31) yeast infection Medication List - Last Reconciled 09/23/25 by Andrew Edgar MD albuterol sulfate 90 mcg/actuation 2 puffs inhalation Q6H PRN fluticasone propion-salmeterol 100-50 mcg/dose (Advair Diskus) 1 inh inhalation Q12H levothyroxine (Synthroid) 150 mcg orally ONCE DAILY WITH FOOD; SYNTHROID - NO SUBSTITUTIONS DAW1 lorazepam (Ativan) 0.5 mg orally 1 hour prior to procedure and immediately before procedure PRN anxiety; do not drive after taking medication morphine ER 60 mg PO Q12H 30 days oxycodone 5 mg PO TID PRN 30 days piroxicam 20 mg PO DAILY sertraline 100 mg PO DAILY tramadol 50 mg PO TID PRN 30 days HPI Comments Details: 54-year-old female patient presenting for evaluation of a right breast mass identified on recent imaging studies. She underwent a screening mammogram on 08/28/2025 which revealed a architectural abnormality in the upper outer quadrant, 10 o'clock position 14 cm from the nipple felt to be suspicious for malignancy. Subsequent ultrasound and diagnostic mammography confirmed the density to be solid and suspicious for malignancy (BI-RADS 4). Ultrasound-guided core biopsy is recommended. She is scheduled for this procedure at the [facility] on 09/25/2025. Patient denies a prior history of breast problems or breast surgery. Her family history is negative for breast cancer. She is 0. Menarche at the age of 12, menopause at 52. She was on control pills for many years but denies any other hormone replacement therapy. She denies any current breast symptoms of pain, redness, discharge, or palpable masses. [facility] Medical History DJD (degenerative joint disease), ankle and foot Chronic pain syndrome Multinodular thyroid Surgical History Hx of wisdom tooth extraction Hx of tonsillectomy History of surgery Family History Mother Colon cancer Father Family history of prostate problems Sister Colon cancer Metastasis to lung Liver cancer Paternal Grandmother Breast cancer, Onset Age: 93 Social History Housing: House Alcohol intake: current Alcohol intake frequency: holidays/special occasions only Patient Tobacco Use Status: Never used Tobacco service: No Current occupational status: employed Cognitive needs: Yes (cane) Hearing needs: No Vision needs: Yes (reading glasses) Female Reproductive History Menstrual Age of Menarche: 12 Total pregnancies: 0 Review of Systems Const Details: - Cardiovascular: Reports occasional episodes of increased heart rate. - Musculoskeletal: Reports chronic pain in the left ankle and hip; recent shoulder injury. - Breast: Denies pain, nipple discharge, palpable mass, skin changes, or enlarged lymph nodes. - Respiratory: Denies shortness of breath or coughing. - Neurological: Denies headaches. - Gastrointestinal: Denies nausea or vomiting. - Constitutional: Denies fever, chills, weight loss, or anorexia. Physical Exam Vital Signs: BMI result Body Mass Index 28.3 Const General: cooperative and no acute distress Nutritional Appearance: well nourished Orientation/consciousness: patient oriented x3 Limitations: no limitations HEENT Head: Yes normocephalic and Yes atraumatic Ears: hearing grossly normal bilaterally Chest Other: Left breast: No skin change, no nipple retraction, no nipple discharge, no palpable mass, no enlarged lymph nodes. Right breast: No skin change, no nipple retraction, no nipple discharge, no palpable mass, no enlarged lymph nodes Resp Effort & Inspection: normal respiratory effort, no audible wheezes, no cough and no respiratory distress Cardio Jugular venous distension: no JVD GI Inspection: Yes normal to inspection Skin Other: Warm, dry, no rash Neuro General: patient oriented x3 Extrem General: Yes no clubbing, cyanosis or edema Assessment & Plan Assessment & Plan (1) Abnormal mammogram of right breast: Code(s): R92.8 - Other abnormal and inconclusive findings on diagnostic imaging of breast Category: Medical (2) Abnormal ultrasound of breast: Code(s): R92.8 - Other abnormal and inconclusive findings on diagnostic imaging of breast Category: Medical Plan 54-year-old female patient presenting with a recent mammogram which revealed an area of focal asymmetry in the 10 o'clock position right breast 14 cm from the nipple. This was confirmed on ultrasound to be solid and felt to be suspicious for malignancy (BI-RADS 4). She denies any previous history of breast problems or breast surgery. Examination today revealed no suspicious findings in either breast and no enlarged lymph nodes. She is scheduled for the ultrasound-guided core biopsy at the [facility] on 09/25/2025. I recommended follow up in approximately 1 week following the procedure to review the pathology results and discuss treatment options. She expressed understanding and agrees with the plan. She is extremely nervous therefore I have prescribed Ativan to be taken prior to the procedure. Orders: Orders US breast ndl core biopsy RT 09/22/25 R92.8 - Other abnormal and inconclusive findings on diagnostic imaging of breast Medications: New lorazepam (Ativan) 0.5 mg orally 1 hour prior to procedure and immediately before procedure PRN anxiety; do not drive after taking medication 2 tabs 0RF anxiety R92.8 - Other abnormal and inconclusive findings on diagnostic imaging of breast Coding Level of Care Code New Pt Level 4 (31819) Diagnoses Abnormal mammogram of right breast R92.8 Abnormal ultrasound of breast R92.8
[2025-09-23 08:24] VITALS: BP 138/87; PULSE 61; BMI 28.3
== END 2025-09-23 08:54 | disposition home or self-care (01) ==
LOC: HO.HGS 08:15
PROVIDERS: PCP Internal Medicine; Visit Provider Surgery
DX: R92.8 Other abnormal and inconclusive findings on diagnostic imaging of breast (principal)
CPT/HCPCS: 99204

== ENCOUNTER 2025-09-25 07:47 | Outpatient (REF) | payer OTHER, SELFPAY ==
--- NOTE | ~2025-09-25 | MM_ITS ---
PROCEDURE: ULTRASOUND-GUIDED RIGHT BREAST BIOPSY CLINICAL INFORMATION: Solid irregular mass on ultrasound at 10:00 14 cm from the nipple here for ultrasound-guided biopsy. COMPARISON: Priors on PACS. TECHNIQUE: The details of the procedure, as well as the risks, benefits, and alternatives to the procedure were explained to the patient in detail and all of her questions were answered, after which, written informed consent was obtained. PROCEDURE: Prior to the procedure, sonography revealed irregular mass 10:00 14 cm from the nipple right breast.. The procedure was explained to the patient, including discussion of the risks and benefits, and written informed consent was obtained. A preprocedural time out was performed to confirm the pateint identity with multiple identifiers as well as the side, site of the procedure to be performed. The lesion intended for biopsy was targeted and the skin of the right breast was then prepped and draped in the usual sterile fashion. Using sonographic guidance, sterile technique, and 1% lidocaine without epinephrine for local anesthesia, a total of 5 cores were obtained through the targeted area with a 14-gauge biopsy needle biopsy device. At the completion of tissue sampling, a single coil metallic clip was deposited at the biopsy site. An appropriate sample was obtained. The postprocedure 2-view direct digital mammogram reveals satisfactory positioning of the biopsy clip. The patient tolerated the procedure well and, after assuring adequate hemostasis, was discharged in good condition after reviewing postbiopsy breast care instructions. Final pathology results are pending. MM/MM tomosynthesis diagnostic RT IMPRESSION: 1. Uncomplicated sonographically-guided core biopsy of the right breast. The 2-view direct digital postprocedure mammogram reveals satisfactory positioning of the biopsy clip. 2. Final pathology results are pending. A separate report with final recommendations will be issued once these results are made available. Electronically signed by: Guerline Mathew DO 09/25/2025 10:35 AM EST
[2025-09-25] MEDS: Lidocaine HCl 1 % 20 ML VIAL SUBCUT (09:08)
== END 2025-09-25 07:48 | disposition home or self-care (01) ==
LOC: HO.MAMMO 07:47
PROVIDERS: PCP Internal Medicine; Visit Provider Surgery
DX: R92.8 Other abnormal and inconclusive findings on diagnostic imaging of breast (principal); N63.11 Unspecified lump in the right breast, upper outer quadrant
CPT/HCPCS: 19083; 77061; 77065; 88305; 88360; A4648; J2003

== ENCOUNTER → 2025-09-25 08:00 | Outpatient (BNV) | payer OTHER, SELFPAY | PROVIDERS: PCP Internal Medicine; Visit Provider Internal Medicine | DX: N63.11 Unspecified lump in the right breast, upper outer quadrant (principal) | CPT/HCPCS: 19083; 77065 ==

== ENCOUNTER 2025-10-06 15:09 | Outpatient (AMB) | payer OTHER, SELFPAY ==
--- NOTE | 2025-10-06 15:17 | A.OFFVIS_ITS ---
Vital Signs 10/06/25 15:28 Height 5 ft 5 in Weight 172 lb BMI 28.6 Intake Visit Reasons: follow up brst BX Intake Note: Patient is seen in office for biopsy RESULTS, right breast mass. 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 Required: No Accompanied by: Family/Other Allergies codeine Allergy (Unknown, Verified 10/06/25 15:17) rash when she was younger gabapentin Allergy (Unknown, Verified 10/06/25 15:17) Rash Penicillins Allergy (Unknown, Verified 10/06/25 15:17) Rash Sulfa (Sulfonamide Antibiotics) Adverse Reaction (Unknown, Verified 10/06/25 15:17) yeast infection Medication List - Last Reconciled 10/06/25 by Andrew Edgar MD albuterol sulfate 90 mcg/actuation 2 puffs inhalation Q6H PRN fluticasone propion-salmeterol 100-50 mcg/dose (Advair Diskus) 1 inh inhalation Q12H levothyroxine (Synthroid) 150 mcg orally ONCE DAILY WITH FOOD; SYNTHROID - NO SUBSTITUTIONS DAW1 lorazepam (Ativan) 0.5 mg orally 1 hour prior to procedure and immediately b efore procedure PRN anxiety; do not drive after taking medication morphine ER 60 mg PO Q12H 30 days oxycodone 5 mg PO TID PRN 30 days piroxicam 20 mg PO DAILY sertraline 100 mg PO DAILY tramadol 50 mg PO TID PRN 30 days HPI Comments Details: 54-year-old female patient returning 1 week following a right breast ultrasound- guided core [facility] Pathology revealed a right breast 10:00 invasive ductal carcinoma, grade 1, ductal carcinoma in-situ, low grade, cribriform type, estrogen and progesterone receptor positive, HER2 Karla pending, Ki-67 low. She tolerated the procedure well but was extremely anxious despite the Ativan. She denies a prior history of breast problems or breast surgery. Her family history is negative for breast cancer. 0 and menarche was the age of 12. She underwent menopause at age 52. She was on control pills for many years but denies any hormone replacement therapy. She returns today to review the results of her ultrasound- guided core biopsy. [facility] Medical History DJD (degenerative joint disease), ankle and foot Chronic pain syndrome Multinodular thyroid Surgical History Hx of wisdom tooth extraction Hx of tonsillectomy History of surgery Family History Mother Colon cancer Father Family history of prostate problems Sister Colon cancer Metastasis to lung Liver cancer Paternal Grandmother Breast cancer, Onset Age: 93 Social History Housing: House Alcohol intake: current Alcohol intake frequency: holidays/special occasions only Patient Tobacco Use Status: Never used Tobacco service: No Current occupational status: employed Cognitive needs: Yes (cane) Hearing needs: No Vision needs: Yes (reading glasses) Female Reproductive History Menstrual Age of Menarche: 12 Review of Systems Const All systems reviewed & are unremarkable except as noted in HPI and below Physical Exam Vital Signs: BMI result Body Mass Index 28.6 Const General: cooperative and no acute distress Nutritional Appearance: well nourished Orientation/consciousness: patient oriented x3 Limitations: no limitations HEENT Head: Yes normocephalic and Yes atraumatic Ears: hearing grossly normal bilaterally Chest Other: From previous exam: Left breast: No skin change, no nipple retraction, no nipple discharge, no palpable mass, no enlarged lymph nodes. Right breast: No skin change, no nipple retraction, no nipple discharge, no palpable mass, no enlarged lymph nodes Resp Effort & Inspection: normal respiratory effort, no audible wheezes, no cough and no respiratory distress Cardio Jugular venous distension: no JVD GI Inspection: Yes normal to inspection Skin Other: Warm, dry, no rash Neuro General: patient oriented x3 Extrem General: Yes no clubbing, cyanosis or edema Assessment & Plan Assessment & Plan (1) Ductal carcinoma in situ of right breast: Code(s): D05.11 - Intraductal carcinoma in situ of right breast Category: Medical (2) Invasive ductal carcinoma of right breast: Code(s): C50.911 - Malignant neoplasm of unspecified site of right female breast Category: Medical Plan 54-year-old female patient with a newly diagnosed right breast invasive ductal carcinoma, grade 1 with DCIS, low grade, cribriform type, ER/UT positive, HER2 Karla pending, low Ki-67. I reviewed the pathology results with the patient and her today and discuss treatment options. I reviewed the right breast lumpectomy with localizer and right axillary sentinel node biopsy. After discussion of the procedure, risks, and alternatives, she consents to the surgery. She will be scheduled as a short-stay surgery. Orders: Referrals General Surgery Procedure Notification C50.911 - Malignant neoplasm of unspecified site of right female breast, D05.11 - Intraductal carcinoma in situ of right breast Coding Level of Care Code Est Pt Level 4 (96550) Diagnoses Ductal carcinoma in situ of right breast D05.11 Invasive ductal carcinoma of right breast C50.911
[2025-10-06 15:28] VITALS: BMI 28.6
--- OUTSIDE RECORDS SUMMARY | 2025-10-06 18:20 | XMS_ITS | Encounter Summary ---
Author Organization [facility] Address [address] [address] Phone Care Team Providers Care Concrete Tester Name Role Phone Shawn Stanton DO Primary Care Provider Encounter Details Date Type Department Care Team (Latest Contact Info) Description 12/20/2021 Transcribe Orders Virtual Department [address] [place] [address] Shawn Stanton DO [address] [place] [address] COVID (Primary Dx); Mild persistent asthma without [...] complication documented in this encounter Care Teams Concrete Tester Relationship Specialty Start Date End Date Shawn Stanton DO [address] [place] [address] PCP - General 10/19/17 documented as of this encounter Additional Source Comments The information contained in this document represents components of the legal health record. It is not the complete legal health record.[facility]
--- OUTSIDE RECORDS SUMMARY | 2025-10-06 18:20 | XMS_ITS | Clinical Summary ---
Author Organization [facility] Address [address] [address] Phone Care Team Providers Care Gas Inspector Name Role Phone Shawn Stanton DO Primary [...] Department Care Team Description 08/22/2025 Orders Only [facility] Phle[facility] [place] [address] [place] [address] [place] [address] Guillermo Manning MD Chronic pain syndrome (Primary Dx); Localized, primary osteoarthritis of ankle or foot, unspecified laterality 08/22/2025 Orders Only [facility]le[facility] [place] [address] [place] [address] [place] [address] Guillermo Manning MD Localized, primary osteoarthritis of [...] Color Yellow Yellow 08/22/2025 3:37 PM EST [facility] Clarity Clear Clear 08/22/2025 3:37 PM EST [facility] Glucose Negative Negative 08/22/2025 3:37 PM EST [facility] Bilirubin Urine Negative Negative 3:37 PM [facility] Ketone Urine Negative Negative 08/22/2025 3:37 PM [facility] Specific [place] 1.020 1.001 - 1.035 08/22/2025 3:37 PM [facility] Blood Negative Negative 08/22/2025 3:37 PM [facility] pH 6.5 5.0 - 8.0 08/22/2025 3:37 PM [facility] Protein Negative Negative 08/22/2025 3:37 PM [facility] Nitrites Negative Negative 08/22/2025 3:37 PM [facility] Leukocyte Esterase Negative Negative 08/22/2025 3:37 PM [facility] Urobilinogen Negative Negative 08/22/2025 3:37 PM [facility] Urine (Urine, Voided) Non-Blood Collection / Unknown 08/22/2025 8:26 AM EST 08/22/2025 8:26 AM EST us Guillermo Manning MD LAB URINE ORDERABLES Final Result [facility] [address] [place] [address] * (ABNORMAL) Hepatic Panel (LFTs) (08/22/2025 8:26 AM EST) AST 32 <33 U/L 08/22/2025 2:51 PM [facility] ALT 25 <34 U/L 08/22/2025 2:51 PM [facility] Alkaline Phosphatase 164(H) 40 - 130 U/L 08/22/2025 2:51 PM [facility] Bilirubin, Total 0.4 0.0 - 1.2 mg/dL 08/22/2025 2:51 PM [facility] Bilirubin, Direct 0.1 0.0 - 0.3 mg/dL 08/22/2025 2:51 PM [facility] Total Protein 8.2 6.4 - 8.3 g/dL 08/22/2025 2:51 PM [facility] Albumin 4.7 3.5 - 5.2 g/dL 08/22/2025 2:51 PM [facility] Globulin 3.5 1.9 - 4.1 g/dL 08/22/2025 2:51 PM [facility] Blood (Blood) Venipuncture / Unknown 08/22/2025 8:26 AM EST 08/22/2025 8:26 AM EST us Guillermo Manning MD LAB BLOOD BKR ORDERA BLES Final Result [facility] [address] [place] [address] * (ABNORMAL) CBC (08/22/2025 8:26 AM EST) WBC 6.89 4.00 - 11.00 K/uL 08/22/2025 1:44 PM [facility] RBC 4.40 4.00 - 5.20 M/uL 08/22/2025 1:44 PM [facility] Hemoglobin 14.9 12.0 - 16.0 g/dL 08/22/2025 1:44 PM [facility] Hematocrit 43.9 36.0 - 46.0 % 08/22/2025 1:44 PM [facility] MCV 99.8 80.0 - 100.0 fL 08/22/2025 1:44 PM [facility] MCH 33.9(H) 27.0 - 31.0 pg 08/22/2025 1:44 PM [facility] MCHC 33.9 32.0 - 36.0 g/dL 08/22/2025 1:44 PM [facility] PLT 200 150 - 450 K/uL 08/22/2025 1:44 PM [facility] MPV 11.0 8.4 - 12.0 fL 08/22/2025 1:44 PM [facility] RDW-CV 11.7 11.5 - 14.5 % 08/22/2025 1:44 PM [facility] Absolute NRBC 0.00 <=0.00 K cells/uL 08/22/2025 1:44 PM [facility] NRBC 0.0 <=0.0 /100 WBCs 08/22/2025 1:44 PM EST [facility] Blood (Blood) Venipuncture / Unknown 08/22/2025 8:26 AM EST 08/22/2025 8:26 AM EST us Guillermo Manning MD LAB BLOOD BKR ORDERA BLES Final Result Performing Organization Address City/[facility]/ZIP Co de Phone Number [address] [address] * Thyroid Stimulating Hormone (TSH) (08/22/2025 8:26 AM EST) TSH 1.02 0.40 - 5.00 uIU/mL 08/22/2025 2:51 PM [facility] Blood (Blood) Venipuncture / Unknown 08/22/2025 8:26 AM EST 08/22/2025 8:26 AM EST us Guillermo Manning MD LAB BLOOD BKR ORDERA BLES Final Result Performing Organization Address [facility] Co de Phone Number [address] [address] * (ABNORMAL) Lipid Panel (08/22/2025 8:26 AM EST) Cholesterol 235(H) <200 mg/dL 08/22/2025 2:51 PM [facility] HDL 110 >=40 mg/dL 08/22/2025 2:51 PM [facility] Calculated LDL 110 <130 mg/dL 08/22/2025 2:51 PM [facility] Comment:LDL is calculated us ing the Pradhan-NIH equation (TIFFANY Cardiol. 2019February 13;5(5):540-548). Non-HDL Cholesterol 125 mg/dL 08/22/2025 2:51 PM [facility] Comment:Guidelines suggest a non-HDL cholesterol goal 30 mg/dL higher than the patient-specific LDL cholesterol goal. Cardiac Risk Ratio 2.1 0.0 - 5.0 2024 2:51 PM [facility] Triglycerides 89 <=150 mg/dL 08/22/2025 2:51 PM [facility] Blood (Blood) Venipuncture / Unknown 08/22/2025 8:26 AM EST 08/22/2025 8:26 AM EST Guillermo Manning MD LAB BLOOD BKR ORDERA BLES Final Result [address] [address] * (ABNORMAL) Basic Metabolic Panel (BMP) (08/22/2025 8:26 AM EST) Sodium 135(L) 136 - 145 mmol/L 08/22/2025 2:51 PM [facility] Potassium 4.3 3.4 - 5.1 mmol/L 08/22/2025 2:51 PM [facility] Comment:NOTE: Specimen hemol yzed. Results may be falsely increased. Chloride 97(L) 98 - 107 mmol/L 08/22/2025 2:51 PM [facility] CO2 26 20 - 31 mmol/L 08/22/2025 2:51 PM [facility] Anion Gap 12 3 - 17 mmol/L 08/22/2025 2:51 PM [facility] BUN 11 6 - 23 mg/dL 08/22/2025 2:51 PM [facility] Creatinine 0.40(L) 0.50 - 1.00 mg/dL 08/22/2025 2:51 PM [facility] eGFR 118 >59 mL/min/1.7 3m2 08/22/2025 2:51 PM [facility] Comment:Estimated glomerular filtration rate calculated using the CKD-EPI refit equation. Glucose 96 70 - 99 mg/dL 08/22/2025 2:51 PM [facility] Calcium 10.2 8.5 - 10.5 mg/dL 08/22/2025 2:51 PM [facility] Blood (Blood) Venipuncture / Unknown 08/22/2025 8:26 AM EST 08/22/2025 8:26 AM EST Guillermo Manning MD LAB BLOOD BKR ORDERA BLES Final Result [address] [address] from Last 3 Months Insurance O O O O O O O O O Care Teams Gas Inspector Relationship Specialty Start Date End Date Shawn Stanton DO [address] [place] [id number] PCP - General 10/19/17 Additional Source Comments The information contained in this document represents components of the legal health record. It is not the complete legal health record.[facility]
--- OUTSIDE RECORDS SUMMARY | 2025-10-06 18:20 | XMS_ITS | Encounter Summary ---
Author Organization [facility] Address [address] [facility] [address] [place] [address] Phone Care Team Providers Care Lace Sewer Name Role Phone Shawn Stanton DO Primary Care Provider Encounter Details Date Type Department Care Team (Latest Contact Info) Description 04/24/2018 Transcribe Orders [facility] Phleb [address] [place] [address] Shawn Stanton DO [address] [place] [address] Iron deficiency anemia due to chronic blood [...] EDT) SODIUM 136 133 - 146 mmol/L [facility] POTASSIUM 3.9 3.3 - 5.1 mmol/L [facility] CHLORIDE 97 96 - 108 mmol/L [facility] CO2 27 21 - 35 mmol/L [facility] BUN 12 6 - 19 mg/dL [facility] CREATININE 0.50 0.5 - 1.5 mg/dL [facility] GLUCOSE 109(H) 70 - 99 mg/dL [facility] ALBUMIN 4.2 3.9 - 4.8 g/dL [facility] TOTAL PROTEIN 7.3 6.5 - 8.0 g/dL [facility] CALCIUM 9.5 8.4 - 10.3 mg/dL [facility] ALKALINE PHOSPHATASE 118(H) 39 - 117 U/L [facility] TOTAL BILIRUBIN 0.3 0.0 - 1.2 mg/dL [facility] AST 27 0 - 37 U/L [facility] ALT 27 0 - 40 U/L [facility] GLOBULIN 3.1 1 - 4.8 g/dL [facility] EGFR 115 >59 mL/min/1.7 3m2 [facility] Comment:If patient is black, multiply result by 1.159. Estimated glomerular filtration rate calculated using the CKD-EPI equation. ANION GAP 16 10 - 20 mmol/L [facility] Blood 04/24/2018 1:14 PM EDT 04/24/2018 1:18 PM EDT us Shawn Stanton DO LAB BLOOD BKR ORDERABLES Fin al Result Performing Organization Address [facility] Co de Phone Number [address] [address] * Iron and iron binding capacity (04/24/2018 1:14 PM EDT) IRON 120 30 - 160 ug/dL [facility] IRON BINDING CAPACITY 339 228 - 428 ug/dL [facility] TRANSFERRIN SATURAT. 35 15 - 50 % [facility] Blood 04/24/2018 1:14 PM EDT 04/24/2018 1:18 PM EDT Shawn Stanton DO LAB BLOOD BKR ORDERABLES Fin al Result [address] [address] * Ferritin (04/24/2018 1:14 PM EDT) FERRITIN 25 13 - 150 ug/L [facility] Blood 04/24/2018 1:14 PM EDT 04/24/2018 1:18 PM EDT us Shawn Stanton DO LAB BLOOD BKR ORDERABLES Fin al Result [facility] [address] [place] [address] * (ABNORMAL) CBC and differential (04/24/2018 1:14 PM EDT) WBC 5.11 3.40 - 11.20 K/uL [facility] RBC 3.91 3.80 - 4.80 M/uL [facility] HGB 11.7(L) 12.0 - 15.0 g/dL [facility] HCT 35.0(L) 36.0 - 46.0 % [facility] PLT 199 130 - 400 K/uL [facility] MCV 89.5 79.0 - 98.0 fL [facility] MCH 29.9 27.0 - 34.8 pg [facility] MCHC 33.4 31.5 - 36.0 g/dL [facility] RDW 13.7 10.8 - 14.6 % [facility] MPV 10.7 9.4 - 12.4 fl [facility] NRBC 0.00 /100 WBCs [facility] ABSOLUTE NRBC 0.00 K/uL [facility] DIFF METHOD Auto [facility] NEUTS 68.0 45.30 - 77.70 % [facility] LYMPHS 23.5 12.30 - 39.70 % [facility] MONOS 6.5 4.10 - 12.80 % [facility] EOS 1.2 0 - 7.2 % [facility] BASOS 0.6 0 - 2.80 % [facility] Granulocytes, immature (%) 0.2 0.0 - 0.9 % [facility] ABSOLUTE NEUTS 3.48 1.40 - 7.70 K/uL [facility] ABSOLUTE LYMPHS 1.20 0.60 - 3.20 K/uL [facility] ABSOLUTE MONOS 0.33 0.11 - 0.59 K/uL [facility] ABSOLUTE EOS 0.06 0.01 - 0.50 K/uL [facility] ABSOLUTE BASOS 0.03 0.00 - 0.08 K/uL [facility] Granulocytes, immature 0.01 0.00 - 0.05 K/uL [facility] Blood 04/24/2018 1:14 PM EDT 04/24/2018 1:18 PM EDT us Shawn Stanton DO LAB BLOOD BKR ORDERABLES Fin al Result [facility] [address] [place] [address] documented in this encounter Visit Diagnoses Diagnosis Iron deficiency anemia due to chronic blood loss- Primary Iron deficiency anemia secondary to blood loss (chronic) documented in this encounter Care Teams Lace Sewer Relationship Specialty Start Date End Date Shawn Stanton, [address] [place] [phone] PCP - General 10/19/17 documented as of this encounter Additional Source Comments The information contained in this document represents components of the legal health record. It is not the complete legal health record.[facility]
--- OUTSIDE RECORDS SUMMARY | 2025-10-06 18:20 | XMS_ITS | Encounter Summary ---
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); [...] EST) SODIUM 135 133 - 146 mmol/L [facility] POTASSIUM 4.2 3.3 - 5.1 mmol/L [facility] CHLORIDE 98 96 - 108 mmol/L [facility] CO2 26 21 - 35 mmol/L [facility] BUN 13 6 - 19 mg/dL [facility] CREATININE <0.50(L) 0.5 - 1.5 mg/dL [facility] GLUCOSE 97 70 - 99 mg/dL [facility] ALBUMIN 4.1 3.9 - 4.8 g/dL [facility] TOTAL PROTEIN 7.2 6.5 - 8.0 g/dL [facility] CALCIUM 8.8 8.4 - 10.3 mg/dL [facility] ALKALINE PHOSPHATASE 107 39 - 117 U/L [facility] TOTAL BILIRUBIN 0.2 0.0 - 1.2 mg/dL [facility] AST 29 0 - 37 U/L [facility] ALT 25 0 - 40 U/L [facility] GLOBULIN 3.1 1 - 4.8 g/dL [facility] EGFR Not Done >59 mL/min/1.7 3m2 [facility] ANION GAP 15 10 - 20 mmol/L [facility] Blood 09/30/2019 8:17 AM EST 09/30/2019 8:21 AM EST us Shawn Stanton DO LAB BLOOD BKR ORDERABLES Fin al Result Performing Organization Address City/State/[facility] Co de Phone Number [address] [address] * (ABNORMAL) CBC and differential (09/30/2019 8:17 AM EST) WBC 4.09 3.40 - 11.20 K/uL [facility] RBC 3.74(L) 3.80 - 4.80 M/uL [facility] HGB 9.4(L) 12.0 - 15.0 g/dL [facility] HCT 31.3(L) 36.0 - 46.0 % [facility] PLT 260 130 - 400 K/uL [facility] MCV 83.7 79.0 - 98.0 fL [facility] MCH 25.1(L) 27.0 - 34.8 pg [facility] MCHC 30.0(L) 31.5 - 36.0 g/dL [facility] RDW 15.2(H) 10.8 - 14.6 % [facility] MPV 10.0 9.4 - 12.4 fl [facility] NRBC 0.00 0.00 /100 WBCs [facility] ABSOLUTE NRBC 0.00 0.00 K/uL [facility] DIFF METHOD Auto [facility] NEUTS 52.0 45.30 - 77.70 % [facility] LYMPHS 32.8 12.30 - 39.70 % [facility] MONOS 12.0 4.10 - 12.80 % [facility] EOS 2.0 0 - 7.2 % [facility] BASOS 1.0 0 - 2.80 % [facility] Granulocytes, immature (%) 0.2 0.0 - 0.9 % [facility] ABSOLUTE NEUTS 2.13 1.40 - 7.70 K/uL [facility] ABSOLUTE LYMPHS 1.34 0.60 - 3.20 K/uL [facility] ABSOLUTE MONOS 0.49 0.11 - 0.59 K/uL [facility] ABSOLUTE EOS 0.08 0.01 - 0.50 K/uL [facility] ABSOLUTE BASOS 0.04 0.00 - 0.08 K/uL [facility] Granulocytes, immature 0.01 0.00 - 0.05 K/uL [facility] Blood 09/30/2019 8:17 AM EST 09/30/2019 8:21 AM EST [facility] ORDERABLES Fin al Result Performing Organization Address [facility] Co de Phone Number [address] [address] * (ABNORMAL) Ferritin (09/30/2019 8:17 AM EST) FERRITIN 9(L) 13 - 150 ug/L [facility] Blood 09/30/2019 8:17 AM EST 09/30/2019 8:21 AM EST Shawn Romy DO LAB BLOOD BKR ORDERABLES Fin al Result Performing Organization Address [facility] Co de Phone Number [address] [address] * (ABNORMAL) Lipid panel (09/30/2019 8:17 AM EST) HDL 94 mg/dL [facility] Comment: Interpretation <40 mg/dL: Low HDL cholesterol (major risk factor for CHD) Greater than or equal to 60 mg/dL: High HDL cholesterol ( negative risk factor for CHD) HDL - cholesterol is affected by a number of factors, e.g. smoking, excerise, hormones, sex and age. CHOLESTEROL 209 0 - 240 mg/dL [facility] TRIGLYCERIDES 71 30 - 160 mg/dL [facility] LDL 101 50 - 129 mg/dL [facility] Comment: LDL levels in terms of risk for coronary heart disease: <100 mg/dL: Optimal 100-129 mg/dL: Near or above optimal 130-159 mg/dL: Borderline high 160-189 mg/dL: High >190 mg/dL: Very High CARDIAC RISK RATIO 2.2(L) 3.3 - 4.4 C [facility] Blood 09/30/2019 8:17 AM EST 09/30/2019 8:21 AM EST Shawn Stanton DO LAB BLOOD BKR ORDERABLES Fin al Result Performing Organization Address [facility] Co de Phone Number [address] [address] * (ABNORMAL) Iron and iron binding capacity (09/30/2019 8:17 AM EST) IRON 20(L) 30 - 160 ug/dL [facility] IRON BINDING CAPACITY 417 228 - 428 ug/dL [facility] TRANSFERRIN SATURAT. 5(L) 15 - 50 % [facility] Blood 09/30/2019 8:17 AM EST 09/30/2019 8:21 AM EST Shawn Stanton DO LAB BLOOD BKR ORDERABLES Fin al Result Performing Organization Address City/[facility]/ZIP Co de Phone Number [address] [address] * (ABNORMAL) 25-OH vitamin D (09/30/2019 8:17 AM EST) 25 OH VIT D (TOTAL) 24(L) 30 - 60 ng/mL [facility] Blood 09/30/2019 8:17 AM EST 09/30/2019 8:21 AM EST Shawn Stanton LAB BLOOD BKR ORDERABLES Fin al Result Performing Organization Address City/[facility]/ZIP Co de Phone Number [address] [address] * TSH (09/30/2019 8:17 AM EST) TSH 3.26 0.27 - 4.20 uIU/mL [facility] Blood 09/30/2019 8:17 AM EST 09/30/2019 8:21 AM EST Shawn Stanton LAB BLOOD BKR ORDERABLES Fin al Result Performing Organization Address [facility] de Phone Number [address] [address] * LH (09/30/2019 8:17 AM EST) LH 1.6 IU/L [facility] Comment: Interpretation: FEMALE: Follicular: 2.4 - 12.6 mIU/ml Ovulate: 4.0 - 99.6 mIU/ml Luteal: 1.0 - 11.4 mIU/ml Postmenopausal: 7.7 - 58.5 mIU/ml Blood 09/30/2019 8:17 AM EST 09/30/2019 8:21 AM EST Shawn Stanton LAB BLOOD BKR ORDERABLES Fin al Result Performing Organization Address [facility] Co de Phone Number [address] [address] * FSH (09/30/2019 8:17 AM EST) FSH 3.9 IU/L [facility] Comment: FEMALE: Follicular: 3.5 - 12.5 mIU/ml. Ovulate: 4.7 - 21.5 mIU/ml. Luteal: 1.7 - 7.7 mIU/ml. Postmenopausal: 25.8 - 134.8 mIU/ml. Blood 09/30/2019 8:17 AM EST 09/30/2019 8:21 AM EST Shawn Stanton DO LAB BLOOD BKR ORDERABLES Fin al Result Performing Organization Address City/[facility]/ZIP Co de Phone Number [address] [address] * ESTROGENS, E1+E2, FRACTIONATED (09/30/2019 8:17 AM EST) ESTRONE 49 pg/mL [facility] Comment: (NOTE) REFERENCE VALUE Premenopausal :17-200 Postmenopausal : 7-40 ADDITIONAL INFORMATION This test was developed and its performance characteristics determined by [facility] in a manner consistent with CLIA requirements. This test has not been cleared or approved by the U.S. Food and Drug Administration. ESTRADIOL, S 40 pg/mL [facility] Comment: (NOTE) REFERENCE VALUE Premenopausal: 15-350 (E2 levels vary widely through the menstrual cycle.) Postmenopausal: <10 ADDITIONAL INFORMATION This test was developed and its performance characteristics determined by [facility] in a manner consistent with CLIA requirements. This test has not been cleared or approved by the U.S. Food and Drug Administration. Blood 09/30/2019 8:17 AM EST 09/30/2019 8:21 AM EST Shawn Stanton DO LAB BLOOD ORDERABLES Final R esult Performing Organization Address [facility]/ZIP Co de Phone Number [facility] [address] [place] [address] documented in this encounter Visit Diagnoses Diagnosis Chronic pain due to trauma- Primary Mild persistent asthma without complication Iron deficiency anemia secondary to blood loss (chronic) documented in this encounter Care Teams Back Line Cook Relationship Specialty Start Date End Date Shawn Stanton DO [address] [place] [id number] PCP - General 10/19/17 documented as of this encounter Additional Source Comments The information contained in this document represents components of the legal health record. It is not the complete legal health record.[facility]
== END 2025-10-06 16:02 | disposition home or self-care (01) ==
LOC: HO.HGS 15:09
PROVIDERS: PCP Internal Medicine; Visit Provider Surgery
DX: D05.11 Intraductal carcinoma in situ of right breast (principal); C50.911 Malignant neoplasm of unspecified site of right female breast
CPT/HCPCS: 99214